=== PATIENT | female | born 1975 | race African-American/Black ===

== ENCOUNTER 2017-09-08 14:37 | Inpatient (IN) | payer OTHER, SELFPAY ==
[2017-09-08 16:00] LABS: #Eosinphils 0.1 thou/uL (0.0-0.7); #Lymphocytes 1.4 thou/uL (1.20-3.40); #Monocytes 0.2 thou/uL (0.11-0.59); #Neutrophils 3.3 thou/uL (1.40-6.50); %Basophils 0.8 % (0.0-1.0); %Eosinophils 1.3 % (0.0-10.0); %Lymphocytes 26.9 % (21.0-51.0); %Monocytes 4.6 % (0.0-10.0); %Neutrophils 66.4 % (42.0-75.0); Hemoglobin 10.7 g/dL (12.0-16.0); Mean Corpuscular HGB CONC 33.9 g/dL (32.0-36.0); Mean Corpuscular Hemoglobin 26.5 pg (27.0-31.0); Mean Corpuscular Volume 78.2 fl (81.0-99.0); Mean Platelet Volume 8.5 fL (7.4-10.4); Platelet Count 202 thou/uL (130-400); RBC Distribution Width 13.8 % (11.5-14.5); Red Blood Cell (RBC) Count 4.03 mill/uL (4.20-5.40)
[2017-09-08] MEDS ORDERED: Furosemide 20 MG/2 ML VIAL ONE (16:07)
--- NOTE | 2017-09-08 16:17 | RAD ---
CHEST TWO VIEWS: 09/08/17 HISTORY: Dyspnea. Heart disease. COMPARISON: 06/02/16. FINDINGS: The cardiac silhouette is magnified and more enlarged. Pulmonary vasculature is unremarkable. Mediast inum is midline with a dual lead left subclavian cardiac electronic device. No confluent air space co nsolidation, pneumothorax or pleural fluid. IMPRESSION: Worsening cardiomegaly. No evidence of edema. POS: [facility]
[2017-09-08 16:19] LABS: ALT (SGPT) 17 U/L (8-55); AST (SGOT) 12 U/L (5-34); Albumin 4.3 g/dL (3.5-5.0); Alkaline Phosphatase 57 U/L (40-150); Anion Gap 14 mmol/L (10-20); BUN (Urea Nitrogen) 17 mg/dL (7.0-18.7); Bilirubin, Total 1.2 mg/dL (0.2-1.2); Calc. Creatinine Clearance 0 mL/min (70-130); Calcium 9.5 mg/dL (7.8-10.44); Carbon Dioxide 29 mmol/L (22-29); Chloride 101 mmol/L (98-107); Estimated GFR-MDRD 75; Globulin 3.2 g/dL (2.4-3.5); Glucose 260 mg/dL (70-105); Potassium 3.3 mmol/L (3.5-5.1); Protein, Total 7.5 g/dL (6.0-8.3); Sodium 141 mmol/L (136-145)
[2017-09-08 16:24] LABS: CKMB 0.5 ng/mL (0-6.6)
[2017-09-08 19:13] VITALS: BMI 22.2
[2017-09-08] MEDS ORDERED: Acetaminophen 650 MG Suppository PR PRN (19:39)
[2017-09-08] MEDS ORDERED: Dextrose 5% in Water 1,000 ML IV PRN (19:39)
[2017-09-08] MEDS ORDERED: Bisacodyl 5 MG TAB PO PRN (19:39)
[2017-09-08] MEDS ORDERED: Acetaminophen 325 MG TAB PO PRN (19:39)
[2017-09-08] MEDS ORDERED: Dextrose 50% Abboject 50 ML SYRINGE SLOW IVP PRN (19:39)
[2017-09-08] MEDS ORDERED: Ondansetron HCl/PF 4 MG/2 ML Vial IVP PRN (19:39)
--- NOTE | 2017-09-08 20:26 | HP ---
PRIMARY CARE PHYSICIAN: Dr. Kayden Lopez. CHIEF COMPLAINT: Cough and shortness of breath. HISTORY OF PRESENT ILLNESS: This is a 42-year-old -[place] female with a known history of severe cardiomyopathy with ejection fraction of 15%-20% with a defibrillator placed. She follows with Dr. Payan as well as with a clinic in [place]. She reports that for the last week, she has had shortness of breath and cough productive of foamy sputum. She would see her primary care doctor one week ago, was given amoxicillin and Flonase, which did not help the symptoms. She was called by the facsimile machine operator's office on Monday and told that her monitor was reporting that she was fluid overloaded. They told her to increase her Lasix to 2 tablets of 40 mg in the morning and 3 tablets in the afternoon. She stated she has been doing this without any noticeable increase in urine output. She also states she has been restricting her fluids. She has persistent cough and shortness of breath especially with ambulation. She went to the Cardiology's office today. She said for a Coumadin level, although I do not see that she has ever been on Coumadin and they told her at that time, she did go to the emergency room to get her fluid status checked. In the ER, she was found to have a massively elevated brain natriuretic peptide as well as her dyspnea and cough. She did not have any hypoxia in the emergency room. She was low normal blood pressure and mildly tachycardic. PAST MEDICAL HISTORY: 1. Dilated cardiomyopathy diagnosed in 2006, the most recent ejection fraction was 15%-20% in 2016 on her echocardiogram at that time. 2. Diabetes mellitus, type 2, insulin-dependent. 3. Hypertension. 4. Arrhythmia, status post ablation. 5. Dyslipidemia. 6. Coronary artery disease. PAST SURGICAL HISTORY: 1. Cholecystectomy. 2. Appendectomy. 3. Bilateral oophorectomy. 4. AICD placement. 5. Cardiac ablation. PSYCHIATRIC HISTORY: Anxiety and depression. SOCIAL HISTORY: No tobacco use. She did use to drink, but stopped with her severe heart problems many years ago. No illicit drug use. FAMILY HISTORY: Significant for diabetes, stroke, and CHF. ALLERGIES: AZITHROMYCIN and DARVOCET. CURRENT MEDICATIONS: 1. Amiodarone 100 mg 1/2 tablet twice a day. 2. Potassium chloride 20 mEq p.o. daily. 3. Furosemide 40 mg previously 1 tab in the morning, half a tablet in the afternoon, now 2 tablets in the morning, and 3 in the afternoon. 4. Spironolactone 25 mg twice a day. 5. Entresto 97/103 mg twice a day. 6. Carvedilol 25 mg twice a day. 7. Magnesium oxide 400 mg as directed once a day. 8. Glipizide 10 mg twice a day. 9. Metformin 1000 mg twice a day, uncertain with the current dose. 10. Lipitor 20 mg daily. 11. Aspirin 81 mg daily. 12. Ferrous sulfate 325 mg daily. REVIEW OF SYSTEMS: Constitutional: No fever. She has had some chills. Eyes: No double vision or blurred vision. ENT: She has had congestion as per HPI. No sore throat. Pulmonary: See HPI. Cardiovascular: No chest pain, no palpitations, no racing heart. Her AICD has not fired. Gastrointestinal: No abdominal pain. She has had some nausea just here in the emergency room, but otherwise she has no vomiting, no diarrhea or constipation. Genitourinary: No dysuria or hematuria. Musculoskeletal: She has had a little bit of low backache, otherwise, no other musculoskeletal complaints. Skin: No rashes or lesions. She has noted neurologic, no new numbness, tingling, or focal weakness. She does have some chronic stain pains in her bilateral feet, likely from diabetic neuropathy. PHYSICAL EXAMINATION: VITAL SIGNS: Blood pressure 102/75, pulse 102, respirations 20, O2 sat 96% on room air, temperature 98.6. GENERAL: This is a well-developed, well-nourished, -[place]ov[place] female in no apparent distress. HEENT: Pupils equal, round, and react to light. Oropharynx clear without lesions, erythema, or exudate. NECK: Supple. No lymphadenopathy, no thyroid nodules or enlargement, no JVD. HEART: Regular rate and rhythm. No murmurs, rubs, or gallops. LUNGS: She has some bibasilar crackles, otherwise good air movement throughout. No increased work of breathing, no wheezing. ABDOMEN: Soft, nontender to palpation, normoactive bowel sounds, no hepatosplenomegaly or other masses. EXTREMITIES: No clubbing, cyanosis, or edema. SKIN: No rashes or other lesions noted. NEUROLOGIC: She has intact deep tendon reflexes in all extremities and she has no facial droop. PSYCHIATRIC: Alert and oriented x3, normal mood and affect. LABORATORY DATA: CBC with hemoglobin of 10.7, hematocrit 31.5. The rest is normal. Complete metabolic panel was notable only for potassium of 3.3 and glucose of 260. Her brain natriuretic peptide is elevated at 1186. She has never been above 400 in our records here. Cardiac marker set negative x1. EKG : I did review the EKG done in the emergency room shows normal sinus rhythm, mild sinus tachycardia, normal axis, no ST segment changes, no significant arrhythmias. Chest x-ray: I did review the chest x-ray done in the emergency room along with the radiologist's report that show an enlarged cardiac silhouette along with the AICD in place. No evidence of pulmonary edema or infiltrate visible. ASSESSMENT: 1. Acute exacerbation of severe congestive heart failure. Patient does not seem to be responding to oral Lasix outpatient, we will try IV Lasix 60 mg twice a day. If this does not work, may need to try some other medications. We will continue her spironolactone while increased her potassium temporarily, as she seems to be dropping somewhat of the increased dose of Lasix. We will increase to 40 mEq twice a day and we will monitor closely. I have to discuss the patient with Dr. Cervantes's on-call. He will see her in the morning. We will go ahead and get an echocardiogram, as we do not have one within the last couple of years. We will also do strict I's and O's and put her on a fluid- restricted, salt-restricted diet. 2. Diabetes mellitus, type 2, insulin-dependent. We will find outpatient's Levemir dose and resume her home insulin. We will put her on a moderate sliding scale and we will monitor for her blood sugars before meals and at bedtime and we will put her on a diabetic diet. 3. Hypertension. Resume home medications. 4. Hyperlipidemia. Resume home statin. 5. Gastrointestinal prophylaxis. Put patient on Pepcid twice a day. 6. Deep venous thrombosis prophylaxis, we will put patient on sequential compression devices and we will check an INR to see if she really is on Coumadin and if so, we will try to find out her dose. Otherwise, we can start putting her on some Lovenox for deep venous thrombosis prevention. CODE STATUS: I did discuss with the patient. She is a FULL CODE. Should she be incapacitated, she states that her aunt would be her medical decision maker and her aunt's name is Winsome Beck. EMELI
[2017-09-08] MEDS: Amiodarone 200 MG TAB PO SCH (21:04)
[2017-09-08] MEDS: Atorvastatin Calcium 20 MG TAB PO SCH (21:08)
[2017-09-08] MEDS: Docusate 100 MG CAP PO SCH (21:08)
[2017-09-08] MEDS: Famotidine 20 MG TAB PO SCH (21:08)
[2017-09-08] MEDS: HumaLOG 300 UNITS/3 ML VIAL SC PRN (21:29)
[2017-09-09 04:55] LABS: INR-International Normal Ratio 1.2; Prothrombin Time 15.3 SEC (12.0-14.7)
[2017-09-09 05:18] LABS: Anion Gap 14 mmol/L (10-20); BUN (Urea Nitrogen) 15 mg/dL (7.0-18.7); Calc. Creatinine Clearance 89 mL/min (70-130); Carbon Dioxide 25 mmol/L (22-29); Chloride 103 mmol/L (98-107); Estimated GFR-MDRD Greater than 90; Glucose 126 mg/dL (70-105); Sodium 139 mmol/L (136-145)
[2017-09-09 05:21] LABS: Potassium 2.7 mmol/L (3.5-5.1)
[2017-09-09] MEDS ORDERED: Furosemide 100 MG/10 ML VIAL SLOW IVP SCH (06:00)
[2017-09-09 06:05] LABS: #Eosinphils 0.1 thou/uL (0.0-0.7); #Lymphocytes 1.7 thou/uL (1.20-3.40); #Monocytes 0.3 thou/uL (0.11-0.59); #Neutrophils 2.4 thou/uL (1.40-6.50); %Basophils 0.5 % (0.0-1.0); %Eosinophils 1.9 % (0.0-10.0); %Lymphocytes 37.4 % (21.0-51.0); %Monocytes 5.6 % (0.0-10.0); %Neutrophils 54.6 % (42.0-75.0); Hemoglobin 10.2 g/dL (12.0-16.0); Mean Corpuscular HGB CONC 34.8 g/dL (32.0-36.0); Mean Corpuscular Hemoglobin 26.8 pg (27.0-31.0); Mean Platelet Volume 8.6 fL (7.4-10.4); Platelet Count 201 thou/uL (130-400); Red Blood Cell (RBC) Count 3.79 mill/uL (4.20-5.40); White Blood Cell (WBC) Count 4.5 thou/uL (4.8-10.8)
[2017-09-09] MEDS ORDERED: Potassium Chloride 20 MEQ TAB PO SCH ×2 (08:00→13:30)
[2017-09-09] MEDS ORDERED: Carvedilol 25 MG TAB PO SCH (08:00)
[2017-09-09] MEDS ORDERED: Spironolactone 25 MG TAB PO SCH (08:00)
[2017-09-09] MEDS: Enoxaparin Sodium 40 MG/0.4 ML SYRINGE SC SCH (08:49)
[2017-09-09] MEDS: glipiZIDE 10 MG TAB PO SCH ×2 (08:50→15:54)
[2017-09-09] MEDS: Amiodarone 200 MG TAB PO SCH ×2 (08:50→21:09)
[2017-09-09] MEDS: metFORMIN 500 MG TAB PO SCH ×2 (08:50→18:10)
[2017-09-09] MEDS: Ferrous Sulfate 325 MG TAB PO SCH (08:51)
[2017-09-09] MEDS: Docusate 100 MG CAP PO SCH ×2 (08:51→21:09)
[2017-09-09] MEDS: Aspirin 81 mg Enteric Coated Tablet PO SCH (08:51)
[2017-09-09] MEDS: Famotidine 20 MG TAB PO SCH (08:51)
[2017-09-09] MEDS: Sodium Chloride 0.9% 10 ML ONE ×2 (08:52→11:58)
--- NOTE | 2017-09-09 10:08 | PDOC.PN ---
- Subjective Encounter Start Date: 09/09/17 Encounter Start Time: 11:50 Subjective: Patient dizzy this AM after Coreg and Spironolactone. BP 80s. No other -: complaints. Good UOP per pt last night, not much this AM. - Objective Resuscitation Status: Resuscitation Status FULL:Full Resuscitation MAR Reviewed: Yes Vital Signs & Weight: Vital Signs (12 hours) Temp Pulse Resp BP Pulse Ox 09/09/17 07:00 97.3 F L 108 H 16 103/66 98 Weight Weight 142 lb 6.4 oz Result Diagrams: 09/09/17 04:21 09/09/17 04:21 Additional Labs: Accuchecks 09/09/17 09/08/17 05:46 21:17 POC Glucose 151 H 276 H Phys Exam - Physical Examination Constitutional: NAD HEENT: moist MMs Respiratory: no wheezing, no rhonchi mild bibasilar rales Cardiovascular: RRR, no significant murmur Gastrointestinal: soft, positive bowel sounds Musculoskeletal: no edema Neurological: non-focal Psychiatric: normal affect, A&O x 3 Dx/Plan (1) Acute on chronic systolic (congestive) heart failure Code(s): I50.23 - ACUTE ON CHRONIC SYSTOLIC (CONGESTIVE) HEART FAILURE Status : Acute Comment: BP low, will decrease carvedilol dose, hold meds for now, if still low in 1 hour will give 250cc NS bolus. (2) S/P implantation of automatic cardioverter/defibrillator (AICD) Code(s): Z95.810 - PRESENCE OF AUTOMATIC (IMPLANTABLE) CARDIAC DEFIBRILLATOR Status: Chronic (3) Hypokalemia Code(s): E87.6 - HYPOKALEMIA Status: Acute Comment: worsened with IV Lasix, will give IV replacement (4) Diabetes mellitus, type II, insulin dependent Code(s): E11.9 - TYPE 2 DIABETES MELLITUS WITHOUT COMPLICATIONS; Z79.4 - [facility] (CURRENT) USE OF INSULIN Status: Chronic Comment: Resume home insulins (5) Hypertension Code(s): I10 - ESSENTIAL (PRIMARY) HYPERTENSION Status: Chronic Qualifiers: Hypertension type: essential hypertension Qualified Code(s): I10 - Essential (primary) hypertension (6) Hyperlipidemia Code(s): E78.5 - HYPERLIPIDEMIA, UNSPECIFIED Status: Chronic - Plan cont current plan of care, out of bed/ambulate, DVT proph w/lovenox, DVT proph w /SCDs Appreciate Dr. Cervantes's assistance. -: Plan on ECHO and [employer] interogator. * . - Discharge Day Encounter end time: 12:10
[2017-09-09] MEDS ORDERED: Potassium Chloride 40 MEQ in Sodium Chloride 0.9% 250 ML 250 ML IVPB SCH (11:00)
[2017-09-09] MEDS: HumaLOG 300 UNITS/3 ML VIAL SC PRN ×3 (12:52→21:12)
[2017-09-09] MEDS ORDERED: Spironolactone 25 MG TAB PO PRN (13:25)
[2017-09-09] MEDS ORDERED: Carvedilol 6.25 MG TAB PO PRN (13:25)
[2017-09-09] MEDS ORDERED: Sodium Chloride 0.9% 250 ML 250 ML IVPB PRN (13:27)
[2017-09-09] MEDS ORDERED: Furosemide 100 MG/10 ML VIAL SLOW IVP PRN (13:30)
[2017-09-09 14:42] LABS: Anion Gap 15 mmol/L (10-20); BUN (Urea Nitrogen) 18 mg/dL (7.0-18.7); Calc. Creatinine Clearance 66 mL/min (70-130); Calcium 9.1 mg/dL (7.8-10.44); Carbon Dioxide 25 mmol/L (22-29); Chloride 104 mmol/L (98-107); Estimated GFR-MDRD 65; Glucose 224 mg/dL (70-105); Potassium 3.8 mmol/L (3.5-5.1); Sodium 140 mmol/L (136-145)
--- NOTE | 2017-09-09 14:49 | CON ---
DATE OF CONSULTATION: 09/09/2017 HISTORY: Mr. Laurence Beck is a 42-year-old black female who has a dilated cardiomyopathy, initially diagnosed in 2006. Most recent echo was in 2016 with ejection fraction of 15%-20%. She had been followed by Dr. Sierra in the past; however, has been admitted here over the last several years and followed by Dr. Payan in the outpatient setting. In 10/2015, she was wearing a LifeVest , did have a shock from her device for ventricular tachycardia and torsades de pointes. She then underwent placement of a dual chamber ICD. Recently, she has been having problems with increased shortness of breath as well as difficulty in diuresing p.o. medications. On 08/03/2017, she was given 80 mg of Lasix intravenously as well as metolazone 5 mg in the [facility]. Her ICD has shown elevated volume level since mid-June. She was seen by Dr. Payan in the office on 08/11/2017. She continued to have problems with poor diuresis and her furosemide was increased to 20 mg 2 tablets b.i.d. and Aldactone 25 mg b.i.d. She has continued to have problems with cough, shortness of breath, and was not diuresing much, came to the emergency room. PAST MEDICAL HISTORY: Nonischemic cardiomyopathy, diabetes mellitus, hypertension, ablation of the arrhythmia approximately 10 years ago, hypercholesterolemia, coronary artery disease. OPERATIONS: ICD placement, cholecystectomy, appendectomy, bilateral oophorectomy, mapping of ventricular tachycardia here in 2006. MEDICATIONS: Aspirin 81 daily, alprazolam 0.5 b.i.d. and bedtime, amiodarone 50 mg daily, atorvastatin 20 at bedtime, carvedilol 25 b.i.d., ferrous sulfate 325 daily, furosemide, spironolactone 25 b.i.d., glipizide 10 mg b.i.d., insulin , magnesium oxide 400 mg daily, metformin 1000 b.i.d., Protonix 40 daily p.r.n. , KCl 20 mEq daily, and Entresto 97/103 b.i.d. ALLERGIES: AZITHROMYCIN. SOCIAL HISTORY: She does not smoke or drink. FAMILY HISTORY: Negative for coronary artery disease. REVIEW OF SYSTEMS: Twelve point review of systems unremarkable except as noted above. PHYSICAL EXAMINATION: VITAL SIGNS: Blood pressure 103/66, pulse of 108, sinus tachycardia on the monitor. HEENT: PERRL. NECK: Supple. CHEST: Clear. CARDIAC: S1, S2 were normal, without any S3, S4 or murmurs. ABDOMEN: Normal bowel sounds, without tenderness, organomegaly. EXTREMITIES: Revealed no clubbing, cyanosis or edema. NEUROLOGIC: Grossly intact. SKIN: Warm and dry. LABORATORY DATA: EKG revealed sinus tachycardia, nonspecific T-wave changes. Hemoglobin 10.2, hematocrit 29.2, white count 4500, platelets 201,000. INR 1.2 , sodium 139, potassium 2.7, chloride 103, carbon dioxide 25, BUN 15, creatinine 0.82. BNP 1186.4, troponin I is normal. Chest x-ray revealed worsening cardiomegaly and dual chamber ICD in place. There is no evidence of edema. IMPRESSION: 1. Severe nonischemic cardiomyopathy with last ejection fraction of 15%-20%. Her OptiVol has been elevated since June and there has been difficulty in diuresing on a consistent basis with p.o. medications. 2. Hypertension. 3. Diabetes. 4. Probable ventricular tachycardia ablation 10 years ago. PLAN: The patient has been started on furosemide 60 mg IV b.i.d. She states that she has had good diuresis with this, although there are no I's and O's on the chart. These have been discussed with the nurse on the unit. She will continue to be diuresed and her potassium will need to be adequately replaced. Also, I will have her ICD interrogated again. EMELI
[2017-09-09] MEDS: Ondansetron ODT 4 MG TAB PO PRN (15:57)
[2017-09-09] MEDS ORDERED: Carvedilol 6.25 MG TAB PO SCH (17:00)
[2017-09-09] MEDS: Potassium Chloride 20 MEQ TAB PO SCH ×2 (18:08→21:10)
[2017-09-09] MEDS ORDERED: ALPRAZolam 0.5 MG TAB PO SCH (21:00)
[2017-09-09] MEDS: ALPRAZolam 0.5 MG TAB PO SCH (21:09)
[2017-09-09] MEDS: Atorvastatin Calcium 20 MG TAB PO SCH (21:09)
[2017-09-09] MEDS: Insulin Detemir 100 UNITS/ML 55 UNITS in Pre-Filled Syringe 1 EACH SC SCH (21:10)
[2017-09-09] MEDS: Sacubitril 49 MG/Valsartan 51 MG TABLET PO SCH (21:11)
[2017-09-10] MEDS ORDERED: Sodium Chloride 0.9% 250 ML IVPB PRN (00:32)
[2017-09-10 05:07] LABS: INR-International Normal Ratio 1.2; Prothrombin Time 15.8 SEC (12.0-14.7)
[2017-09-10 05:36] LABS: Eosinophils 2 % (0-10); Hemoglobin 10.2 g/dL (12.0-16.0); Lymphocytes 42 % (21-51); MDiff Complete? YES; Mean Corpuscular Hemoglobin 26.7 pg (27.0-31.0); Mean Corpuscular Volume 78.5 fl (81.0-99.0); Mean Platelet Volume 8.6 fL (7.4-10.4); Monocytes 4 % (0-10); Myelocyte 1 % (0-0); Neutrophil 51 % (42-75); Platelet Count 179 thou/uL (130-400); RBC Distribution Width 14.2 % (11.5-14.5); Red Blood Cell (RBC) Count 3.81 mill/uL (4.20-5.40)
[2017-09-10 06:06] LABS: Anion Gap 17 mmol/L (10-20); BUN (Urea Nitrogen) 26 mg/dL (7.0-18.7); Calc. Creatinine Clearance 33 mL/min (70-130); Calcium 9.2 mg/dL (7.8-10.44); Carbon Dioxide 21 mmol/L (22-29); Chloride 105 mmol/L (98-107); Estimated GFR-MDRD 29; Glucose 193 mg/dL (70-105); Potassium 4.1 mmol/L (3.5-5.1); Sodium 139 mmol/L (136-145)
[2017-09-10] MEDS: Ferrous Sulfate 325 MG TAB PO SCH (08:16)
[2017-09-10] MEDS: glipiZIDE 10 MG TAB PO SCH ×2 (08:16→16:50)
[2017-09-10] MEDS: metFORMIN 500 MG TAB PO SCH ×2 (08:16→16:50)
[2017-09-10] MEDS: Magnesium Oxide 400 MG TAB PO SCH (08:16)
[2017-09-10] MEDS: Aspirin 81 mg Enteric Coated Tablet PO SCH (08:17)
[2017-09-10] MEDS: Enoxaparin Sodium 40 MG/0.4 ML SYRINGE SC SCH (08:18)
[2017-09-10] MEDS: Docusate 100 MG CAP PO SCH ×2 (08:22→21:48)
[2017-09-10] MEDS: Sacubitril 49 MG/Valsartan 51 MG TABLET PO SCH (08:23)
[2017-09-10] MEDS: Potassium Chloride 20 MEQ TAB PO SCH (08:43)
[2017-09-10] MEDS: Amiodarone 200 MG TAB PO SCH ×2 (08:44→21:47)
[2017-09-10] MEDS: Insulin Detemir 100 UNITS/ML 55 UNITS in Pre-Filled Syringe 1 EACH SC SCH ×2 (09:39→21:48)
--- NOTE | 2017-09-10 11:16 | PDOC.PN ---
- Subjective Encounter Start Date: 09/10/17 Encounter Start Time: 08:20 Pt seen for followup re: acute on chronic systolic CHF. Reports SOBOE. Reports light-headedness. - Objective Resuscitation Status: Resuscitation Status FULL:Full Resuscitation MAR Reviewed: Yes Vital Signs & Weight: Vital Signs (12 hours) Temp Pulse Resp BP BP Pulse Ox 09/10/17 11:05 97.8 F 98 20 104/52 L 96 09/10/17 08:10 97.5 F L 93 14 87/52 L 97 09/10/17 04:42 97.3 F L 93 18 85/54 L 95 09/10/17 04:28 96 09/10/17 01:11 85/54 L 09/10/17 00:00 97.9 F 98 20 87/50 L 96 Weight Weight 145 lb 1.6 oz I&O: 09/09/17 09/10/17 09/11/17 06:59 06:59 06:59 Intake Total 2046 Balance 2046 Result Diagrams: 09/10/17 04:10 09/10/17 04:10 Additional Labs: Accuchecks 09/09/17 09/09/17 09/09/17 20:18 17:01 11:25 POC Glucose 230 H 228 H 234 H EKG Reviewed by me: Yes (Tele: NSR) Phys Exam - Physical Examination Constitutional: NAD HEENT: PERRLA, moist MMs, sclera anicteric, oral pharynx no lesions Neck: no nodes, supple, full ROM Respiratory: no wheezing, no rales, no rhonchi, clear to auscultation bilateral Cardiovascular: RRR Gastrointestinal: soft, non-tender, no distention, positive bowel sounds Neurological: moves all 4 limbs Lymphatic: no nodes Psychiatric: normal affect, A&O x 3 Dx/Plan (1) Acute on chronic systolic (congestive) heart failure Code(s): I50.23 - ACUTE ON CHRONIC SYSTOLIC (CONGESTIVE) HEART FAILURE Status : Acute Comment: On IV furosemide (2) Hyperlipidemia Code(s): E78.5 - HYPERLIPIDEMIA, UNSPECIFIED Status: Chronic (3) Hypertension Code(s): I10 - ESSENTIAL (PRIMARY) HYPERTENSION Status: Chronic Qualifiers: Hypertension type: essential hypertension Qualified Code(s): I10 - Essential (primary) hypertension Comment: Monitor vital signs, titrate antihypertensives on hold. Today AM BP was low, so antihypertensives held. (4) S/P implantation of automatic cardioverter/defibrillator (AICD) Code(s): Z95.810 - PRESENCE OF AUTOMATIC (IMPLANTABLE) CARDIAC DEFIBRILLATOR Status: Chronic (5) Diabetes mellitus, type II, insulin dependent Code(s): E11.9 - TYPE 2 DIABETES MELLITUS WITHOUT COMPLICATIONS; Z79.4 - [employer] (CURRENT) USE OF INSULIN Status: Chronic Comment: Continue accuchecks, insulin (6) Non-ischemic cardiomyopathy Code(s): I42.9 - CARDIOMYOPATHY, UNSPECIFIED Status: Chronic (7) Hypokalemia Code(s): E87.6 - HYPOKALEMIA Status: Resolved Comment: worsened with IV Lasix, will give IV replacement - Plan out of bed/ambulate * . Review of Systems - Review of Systems Constitutional: negative: fever, chills, sweats, weakness, malaise Respiratory: SOB with Excertion. negative: Cough, Dry, Shortness of Breath, Hemoptysis, Pleuritic Pain, Sputum, Wheezing Cardiovascular: negative: chest pain, palpitations, orthopnea, paroxysmal nocturnal dyspnea, edema, light headedness Gastrointestinal: negative: Nausea, Vomiting, Abdominal Pain, Diarrhea, Constipation, Melena, Hematochezia Genitourinary: negative: Dysuria, Frequency, Incontinence, Hematuria, Retention Neurological: Other (Light-headed) - Medications/Allergies Allergies/Adverse Reactions: Allergies Allergy/AdvReac Type Severity Reaction Status Date / Time azithromycin Allergy Mild Rash Verified 09/08/17 19:42 erythromycin base Allergy Verified 09/08/17 19:42 [From E-Mycin] Latex, Natural Rubber Allergy Verified 09/08/17 19:42 propoxyphene napsylate Allergy Verified 09/08/17 19:42 [From Darvocet-N] Medications: Current Medications Acetaminophen (Tylenol) 650 mg PO Q4H PRN PRN Reason: Headache/Fever or Pain Acetaminophen (Tylenol) [address] Q4H PRN PRN Reason: Headache/Fever or Pain Alprazolam (Xanax) 0.5 mg PO HS [facility] Last Admin: 09/09/17 21:09 Dose: 0.5 mg Amiodarone HCl (Cordarone) 50 mg PO BID [facility] Last Admin: 09/10/17 08:44 Dose: 50 mg Aspirin (Ecotrin) 81 mg PO DAILY [facility] Last Admin: 09/10/17 08:17 Dose: 81 mg Atorvastatin Calcium (Lipitor) 20 mg PO HS [facility] Last Admin: 09/09/17 21:09 Dose: 20 mg Bisacodyl (Dulcolax) 10 mg PO DAILYPRN PRN PRN Reason: Constipation Carvedilol (Coreg) 12.5 mg PO PRN PRN PRN Reason: SBP =/> 110 Dextrose/Water (Dextrose 50%) 25 gm SLOW IVP PRN PRN PRN Reason: Hypoglycemia Docusate Sodium (Colace) 100 mg PO BID [facility] Last Admin: 09/10/17 08:22 Dose: Not Given Enoxaparin Sodium (Lovenox) 40 mg SC 0900 [facility] Last Admin: 09/10/17 08:18 Dose: 40 mg Ferrous Sulfate (Feosol) 325 mg PO QAM-[facility] Last Admin: 09/10/17 08:16 Dose: 325 mg Furosemide (Lasix) 60 mg SLOW IVP PRN PRN PRN Reason: SBP =/> 110 Glipizide (Glucotrol) 10 mg PO BID-AC [facility] Last Admin: 09/10/17 08:16 Dose: 10 mg Glucagon (Glucagon) 1 mg IM PRN PRN PRN Reason: Hypoglycemia Dextrose/Water (D5w) 1,000 mls @ 0 mls/hr IV .Q0M PRN; As Directed PRN Reason: Hypoglycemia Insulin Detemir 55 units/ (Miscellaneous Medication) 0.55 mls @ 0 mls/hr SC BID [facility] Last Admin: 09/10/17 09:39 Dose: 0.55 mls Sodium Chloride (Normal Saline 0.9%) 250 mls @ 0 mls/hr IVPB .BOLUS PRN; As Directed PRN Reason: SBP<90 Last Admin: 09/10/17 00:35 Dose: 250 mls Insulin Human Lispro (Humalog) 0 units SC .MODERATE SLIDING SC PRN PRN Reason: Moderate Correctional Scale Last Admin: 09/09/17 18:10 Dose: 4 unit Insulin Human Lispro (Humalog) 0 units SC .BEDTIME SLIDING SC PRN PRN Reason: Bedtime Correctional Scale Last Admin: 09/09/17 21:12 Dose: 3 unit Magnesium Oxide (Magnesium Oxide) 400 mg PO DAILY [facility] Last Admin: 09/10/17 08:16 Dose: 400 mg Metformin HCl (Glucophage) 1,000 mg PO BID-[facility] Last Admin: 09/10/17 08:16 Dose: 1,000 mg Ondansetron HCl (Zofran Odt) 4 mg PO Q6H PRN PRN Reason: Nausea/Vomiting Last Admin: 09/09/17 15:57 Dose: 4 mg Ondansetron HCl (Zofran) 4 mg IVP Q6H PRN PRN Reason: Nausea/Vomiting Pantoprazole Sodium (Protonix) 40 mg PO DAILY PRN PRN Reason: Indigestion Sacubitril/Valsartan (Entresto 49 Mg-51 Mg Tablet) 2 tab PO BID [facility] Last Admin: 09/10/17 08:23 Dose: Not Given Spironolactone (Aldactone) 25 mg PO PRN PRN PRN Reason: SBP =/> 110
[2017-09-10] MEDS: HumaLOG 300 UNITS/3 ML VIAL SC PRN (11:46)
[2017-09-10] MEDS ORDERED: Sodium Chloride 0.9% 500 ML IV SCH (17:45)
[2017-09-10] MEDS: DOPamine 400 MG/D5W 250 ML 250 ML IVPB SCH (18:25)
[2017-09-10] MEDS: Atorvastatin Calcium 20 MG TAB PO SCH (21:47)
[2017-09-10] MEDS: ALPRAZolam 0.5 MG TAB PO SCH (21:47)
[2017-09-11 04:36] LABS: INR-International Normal Ratio 1.1; Prothrombin Time 14.8 SEC (12.0-14.7)
[2017-09-11 04:48] LABS: Anion Gap 16 mmol/L (10-20); BUN (Urea Nitrogen) 32 mg/dL (7.0-18.7); Calc. Creatinine Clearance 50 mL/min (70-130); Calcium 9.6 mg/dL (7.8-10.44); Carbon Dioxide 22 mmol/L (22-29); Chloride 105 mmol/L (98-107); Estimated GFR-MDRD 45; Glucose 80 mg/dL (70-105); Potassium 4.3 mmol/L (3.5-5.1); Sodium 139 mmol/L (136-145)
[2017-09-11] MEDS: Amiodarone 200 MG TAB PO SCH ×2 (09:42→20:41)
[2017-09-11] MEDS: metFORMIN 500 MG TAB PO SCH ×2 (09:43→17:54)
[2017-09-11] MEDS: Ferrous Sulfate 325 MG TAB PO SCH (09:44)
[2017-09-11] MEDS: Aspirin 81 mg Enteric Coated Tablet PO SCH (09:44)
[2017-09-11] MEDS: Magnesium Oxide 400 MG TAB PO SCH (09:44)
[2017-09-11] MEDS: glipiZIDE 10 MG TAB PO SCH ×2 (09:44→16:43)
[2017-09-11] MEDS: Enoxaparin Sodium 40 MG/0.4 ML SYRINGE SC SCH (09:45)
[2017-09-11] MEDS: Docusate 100 MG CAP PO SCH ×2 (09:48→20:41)
[2017-09-11] MEDS ORDERED: Insulin Detemir 100 UNITS/ML 45 UNITS in Pre-Filled Syringe 1 EACH SC SCH (10:15)
[2017-09-11] MEDS: Insulin Detemir 100 UNITS/ML 55 UNITS in Pre-Filled Syringe 1 EACH SC SCH (10:46)
--- NOTE | 2017-09-11 13:21 | PDOC.PN ---
- Subjective Encounter Start Date: 09/11/17 Encounter Start Time: 11:40 Pt seen for followup re: acute on chronic systolic CHF. Feels better in terms of light-headedness. No fevers or chills. - Objective Resuscitation Status: Resuscitation Status FULL:Full Resuscitation MAR Reviewed: Yes Vital Signs & Weight: Vital Signs (12 hours) Temp Pulse Resp BP Pulse Ox 09/11/17 12:29 98.2 F 110 H 18 86/56 L 96 09/11/17 07:50 97.6 F 91 19 89/50 L 95 09/11/17 03:43 97.5 F L 111 H 16 105/60 99 Weight Weight 146 lb 12.8 oz I&O: 09/10/17 09/11/17 09/12/17 06:59 06:59 06:59 Intake Total 2046 2064 Output Total 415 Balance 2046 1649 Result Diagrams: 09/10/17 04:10 09/11/17 04:08 Additional Labs: Accuchecks 09/11/17 09/11/17 09/11/17 11:11 09:27 06:04 POC Glucose 82 85 72 09/10/17 09/10/17 21:03 15:37 POC Glucose 79 135 H EKG Reviewed by me: Yes (Tele: NSR) Phys Exam - Physical Examination Constitutional: NAD HEENT: PERRLA, moist MMs, sclera anicteric, oral pharynx no lesions Neck: supple Respiratory: no wheezing, no rhonchi Bibasal crackles Cardiovascular: RRR, no rub Gastrointestinal: soft, non-tender, no distention, positive bowel sounds Musculoskeletal: edema present Neurological: moves all 4 limbs Psychiatric: normal affect, A&O x 3 Dx/Plan (1) Acute on chronic systolic (congestive) heart failure Code(s): I50.23 - ACUTE ON CHRONIC SYSTOLIC (CONGESTIVE) HEART FAILURE Status : Acute Comment: Furosemide on hold due to hypotension (2) Hyperlipidemia Code(s): E78.5 - HYPERLIPIDEMIA, UNSPECIFIED Status: Chronic (3) Hypertension Code(s): I10 - ESSENTIAL (PRIMARY) HYPERTENSION Status: Chronic Qualifiers: Hypertension type: essential hypertension Qualified Code(s): I10 - Essential (primary) hypertension Comment: Pt has been started on dopamine drip for hypotension (4) S/P implantation of automatic cardioverter/defibrillator (AICD) Code(s): Z95.810 - PRESENCE OF AUTOMATIC (IMPLANTABLE) CARDIAC DEFIBRILLATOR Status: Chronic (5) Diabetes mellitus, type II, insulin dependent Code(s): E11.9 - TYPE 2 DIABETES MELLITUS WITHOUT COMPLICATIONS; Z79.4 - GROUP HOME (CURRENT) USE OF INSULIN Status: Chronic Comment: on accuchecks, insulin sliding scale (6) Non-ischemic cardiomyopathy Code(s): I42.9 - CARDIOMYOPATHY, UNSPECIFIED Status: Chronic (7) Hypokalemia Code(s): E87.6 - HYPOKALEMIA Status: Resolved - Plan * . Creatinine improved today Review of Systems - Review of Systems Constitutional: negative: fever, chills, sweats, weakness, malaise Respiratory: SOB with Excertion. negative: Cough, Dry, Shortness of Breath, Hemoptysis, Pleuritic Pain, Sputum, Wheezing Cardiovascular: negative: chest pain, palpitations, orthopnea, paroxysmal nocturnal dyspnea, edema, light headedness Gastrointestinal: negative: Nausea, Vomiting, Abdominal Pain, Diarrhea, Constipation, Melena, Hematochezia Genitourinary: negative: Dysuria, Frequency, Incontinence, Hematuria, Retention - Medications/Allergies Allergies/Adverse Reactions: Allergies Allergy/AdvReac Type Severity Reaction Status Date / Time azithromycin Allergy Mild Rash Verified 09/08/17 19:42 erythromycin base Allergy Verified 09/08/17 19:42 [From E-Mycin] Latex, Natural Rubber Allergy Verified 09/08/17 19:42 propoxyphene napsylate Allergy Verified 09/08/17 19:42 [From Darvocet-N] Medications: Current Medications Acetaminophen (Tylenol) 650 mg PO Q4H PRN PRN Reason: Headache/Fever or Pain Acetaminophen (Tylenol) 650 mg [place] Q4H PRN PRN Reason: Headache/Fever or Pain Alprazolam (Xanax) 0.5 mg PO [facility] Last Admin: 09/10/17 21:47 Dose: 0.5 mg Amiodarone HCl (Cordarone) 50 mg PO BID [facility] Last Admin: 09/11/17 09:42 Dose: 50 mg Aspirin (Ecotrin) 81 mg PO DAILY [facility] Last Admin: 09/11/17 09:44 Dose: 81 mg Atorvastatin Calcium (Lipitor) 20 mg PO HS [facility] Last Admin: 09/10/17 21:47 Dose: 20 mg Bisacodyl (Dulcolax) 10 mg PO DAILYPRN PRN PRN Reason: Constipation Dextrose/Water (Dextrose 50%) 25 gm SLOW IVP PRN PRN PRN Reason: Hypoglycemia Docusate Sodium (Colace) 100 mg PO BID [facility] Last Admin: 09/11/17 09:48 Dose: Not Given Enoxaparin Sodium (Lovenox) 40 mg SC 0900 [facility] Last Admin: 09/11/17 09:45 Dose: 40 mg Ferrous Sulfate (Feosol) 325 mg PO QAM-[facility] Last Admin: 09/11/17 09:44 Dose: 325 mg Glipizide (Glucotrol) 10 mg PO BID-[facility] Last Admin: 09/11/17 09:44 Dose: Not Given Glucagon (Glucagon) 1 mg IM PRN PRN PRN Reason: Hypoglycemia Dextrose/Water (D5w) 1,000 mls @ 0 mls/hr IV .Q0M PRN; As Directed PRN Reason: Hypoglycemia Sodium Chloride (Normal Saline 0.9%) 250 mls @ 0 mls/hr IVPB .BOLUS PRN; As Directed PRN Reason: SBP<90 Last Admin: 09/10/17 00:35 Dose: 250 mls Dopamine HCl/Dextrose (Dopamine/D5w) 250 mls @ 6.17 mls/hr IVPB INF MEDARDO; 2.5 MCG/KG/MIN PRN Reason: Protocol Last Admin: 09/10/17 18:25 Dose: 250 mls Insulin Detemir 45 units/ (Miscellaneous Medication) 0.45 mls @ 0 mls/hr SC BID [facility] Insulin Human Lispro (Humalog) 0 units SC .MODERATE SLIDING SC PRN PRN Reason: Moderate Correctional Scale Last Admin: 09/10/17 11:46 Dose: 4 unit Insulin Human Lispro (Humalog) 0 units SC .BEDTIME SLIDING SC PRN PRN Reason: Bedtime Correctional Scale Last Admin: 09/09/17 21:12 Dose: 3 unit Magnesium Oxide (Magnesium Oxide) 400 mg PO DAILY [facility] Last Admin: 09/11/17 09:44 Dose: 400 mg Metformin HCl (Glucophage) 1,000 mg PO BID-[facility] Last Admin: 09/11/17 09:43 Dose: 1,000 mg Ondansetron HCl (Zofran Odt) 4 mg PO Q6H PRN PRN Reason: Nausea/Vomiting Last Admin: 09/09/17 15:57 Dose: 4 mg Ondansetron HCl (Zofran) 4 mg IVP Q6H PRN PRN Reason: Nausea/Vomiting Pantoprazole Sodium (Protonix) 40 mg PO DAILY PRN PRN Reason: Indigestion Sodium Chloride (Flush - Normal Saline) 10 ml IVF Q12HR MEDARDO Sodium Chloride (Flush - Normal Saline) 10 ml IVF PRN PRN PRN Reason: Saline Flush Spironolactone (Aldactone) 25 mg PO PRN PRN PRN Reason: SBP =/> 110
[2017-09-11] MEDS: Ondansetron ODT 4 MG TAB PO PRN (13:32)
[2017-09-11] MEDS: Sodium Chloride 0.9% 1,000 ML IV SCH (19:00)
[2017-09-11] MEDS: ALPRAZolam 0.5 MG TAB PO SCH (20:41)
[2017-09-11] MEDS: Atorvastatin Calcium 20 MG TAB PO SCH (20:41)
[2017-09-11] MEDS: Insulin Detemir 100 UNITS/ML 45 UNITS in Pre-Filled Syringe 1 EACH SC SCH (20:42)
[2017-09-12 04:51] LABS: INR-International Normal Ratio 1.2; Prothrombin Time 15.1 SEC (12.0-14.7)
[2017-09-12 05:05] LABS: Anion Gap 15 mmol/L (10-20); BUN (Urea Nitrogen) 26 mg/dL (7.0-18.7); Calc. Creatinine Clearance 75 mL/min (70-130); Calcium 9.7 mg/dL (7.8-10.44); Carbon Dioxide 22 mmol/L (22-29); Chloride 106 mmol/L (98-107); Estimated GFR-MDRD 72; Glucose 77 mg/dL (70-105); Potassium 4.4 mmol/L (3.5-5.1); Sodium 139 mmol/L (136-145)
[2017-09-12] MEDS: DOPamine 400 MG/D5W 250 ML 250 ML IVPB SCH (08:15)
[2017-09-12] MEDS: metFORMIN 500 MG TAB PO SCH ×2 (08:16→16:54)
[2017-09-12] MEDS: Enoxaparin Sodium 40 MG/0.4 ML SYRINGE SC SCH (08:16)
[2017-09-12] MEDS: glipiZIDE 10 MG TAB PO SCH ×2 (08:17→16:54)
[2017-09-12] MEDS: Amiodarone 200 MG TAB PO SCH (08:17)
[2017-09-12] MEDS: Ferrous Sulfate 325 MG TAB PO SCH (08:17)
[2017-09-12] MEDS: Aspirin 81 mg Enteric Coated Tablet PO SCH (08:17)
[2017-09-12] MEDS: Docusate 100 MG CAP PO SCH ×2 (08:17→20:06)
[2017-09-12] MEDS: Magnesium Oxide 400 MG TAB PO SCH (08:17)
[2017-09-12] MEDS: Insulin Detemir 100 UNITS/ML 45 UNITS in Pre-Filled Syringe 1 EACH SC SCH ×2 (08:18→21:33)
--- NOTE | 2017-09-12 10:51 | PDOC.PN ---
- Subjective Encounter Start Date: 09/12/17 Encounter Start Time: 07:00 Pt seen for followup re: hypotension. Feels better, no dizziness, - Objective Resuscitation Status: Resuscitation Status FULL:Full Resuscitation MAR Reviewed: Yes Vital Signs & Weight: Vital Signs (12 hours) Temp Pulse Resp BP BP Pulse Ox 09/12/17 08:00 98.3 F 104 H 16 97 09/12/17 07:49 98.3 F 104 H 16 130/75 97 09/12/17 04:00 97.6 F 108 H 16 105/70 95 09/11/17 23:55 91/55 L Weight Weight 147 lb 8 oz I&O: 09/11/17 09/12/17 09/13/17 06:59 06:59 06:59 Intake Total 2065 2157.5 Output Total 415 1600 Balance 1650 557.5 Result Diagrams: 09/10/17 04:10 09/12/17 04:11 Additional Labs: Accuchecks 09/12/17 09/11/17 09/11/17 06:06 20:40 16:25 POC Glucose 84 115 H 83 09/11/17 09/11/17 14:13 11:11 POC Glucose 97 82 EKG Reviewed by me: Yes (Tele: NSR) Phys Exam - Physical Examination Constitutional: NAD HEENT: PERRLA, moist MMs, sclera anicteric, oral pharynx no lesions Respiratory: no wheezing, no rales, no rhonchi, clear to auscultation bilateral Cardiovascular: RRR, no rub Gastrointestinal: soft, non-tender, no distention, positive bowel sounds Musculoskeletal: edema present Neurological: moves all 4 limbs Psychiatric: normal affect, A&O x 3 Skin: no rash Dx/Plan (1) Hypotension Status: Acute Comment: On dopamine drip (2) Acute on chronic systolic (congestive) heart failure Code(s): I50.23 - ACUTE ON CHRONIC SYSTOLIC (CONGESTIVE) HEART FAILURE Status : Acute Comment: Furosemide on hold due to hypotension Beta otto and ACEI on hold as well due to hypotension (3) Hyperlipidemia Code(s): E78.5 - HYPERLIPIDEMIA, UNSPECIFIED Status: Chronic (4) Hypertension Code(s): I10 - ESSENTIAL (PRIMARY) HYPERTENSION Status: Chronic Qualifiers: Hypertension type: essential hypertension Qualified Code(s): I10 - Essential (primary) hypertension Comment: Antihypertensives on hold due to hypotension (5) S/P implantation of automatic cardioverter/defibrillator (AICD) Code(s): Z95.810 - PRESENCE OF AUTOMATIC (IMPLANTABLE) CARDIAC DEFIBRILLATOR Status: Chronic (6) Diabetes mellitus, type II, insulin dependent Code(s): E11.9 - TYPE 2 DIABETES MELLITUS WITHOUT COMPLICATIONS; Z79.4 - GROUP HOME (CURRENT) USE OF INSULIN Status: Chronic Comment: accuchecks, insulin sliding scale (7) Non-ischemic cardiomyopathy Code(s): I42.9 - CARDIOMYOPATHY, UNSPECIFIED Status: Chronic (8) Hypokalemia Code(s): E87.6 - HYPOKALEMIA Status: Resolved - Plan DVT proph w/lovenox * . Review of Systems - Review of Systems Constitutional: negative: fever, chills, sweats, weakness, malaise Respiratory: negative: Cough, Dry, Shortness of Breath, Hemoptysis, SOB with Excertion, Pleuritic Pain, Sputum, Wheezing Cardiovascular: negative: chest pain, palpitations, orthopnea, paroxysmal nocturnal dyspnea, edema, light headedness Gastrointestinal: negative: Nausea, Vomiting, Abdominal Pain, Diarrhea, Constipation, Melena, Hematochezia Skin: negative: Rash, Lesions, Albino, Bruising - Medications/Allergies Allergies/Adverse Reactions: Allergies Allergy/AdvReac Type Severity Reaction Status Date / Time azithromycin Allergy Mild Rash Verified 09/08/17 19:42 erythromycin base Allergy Verified 09/08/17 19:42 [From E-Mycin] Latex, Natural Rubber Allergy Verified 09/08/17 19:42 propoxyphene napsylate Allergy Verified 09/08/17 19:42 [From Darvocet-N] Medications: Current Medications Acetaminophen (Tylenol) 650 mg PO Q4H PRN PRN Reason: Headache/Fever or Pain Acetaminophen (Tylenol) 650 mg [place] Q4H PRN PRN Reason: Headache/Fever or Pain Alprazolam (Xanax) 0.5 mg PO HS [facility] Last Admin: 09/11/17 20:41 Dose: 0.5 mg Amiodarone HCl (Cordarone) 50 mg PO BID [facility] Last Admin: 09/12/17 08:17 Dose: 50 mg Aspirin (Ecotrin) 81 mg PO DAILY [facility] Last Admin: 09/12/17 08:17 Dose: 81 mg Atorvastatin Calcium (Lipitor) 20 mg PO HS [facility] Last Admin: 09/11/17 20:41 Dose: 20 mg Bisacodyl (Dulcolax) 10 mg PO DAILYPRN PRN PRN Reason: Constipation Dextrose/Water (Dextrose 50%) 25 gm SLOW IVP PRN PRN PRN Reason: Hypoglycemia Docusate Sodium (Colace) 100 mg PO BID [facility] Last Admin: 09/12/17 08:17 Dose: Not Given Enoxaparin Sodium (Lovenox) 40 mg SC 0900 [facility] Last Admin: 09/12/17 08:16 Dose: 40 mg Ferrous Sulfate (Feosol) 325 mg PO QAM-[facility] Last Admin: 09/12/17 08:17 Dose: 325 mg Glipizide (Glucotrol) 10 mg PO BID-[facility] Last Admin: 09/12/17 08:17 Dose: 10 mg Glucagon (Glucagon) 1 mg IM PRN PRN PRN Reason: Hypoglycemia Dextrose/Water (D5w) 1,000 mls @ 0 mls/hr IV .Q0M PRN; As Directed PRN Reason: Hypoglycemia Sodium Chloride (Normal Saline 0.9%) 250 mls @ 0 mls/hr IVPB .BOLUS PRN; As Directed PRN Reason: SBP<90 Last Admin: 09/10/17 00:35 Dose: 250 mls Dopamine HCl/Dextrose (Dopamine/D5w) 250 mls @ 6.17 mls/hr IVPB INF MEDARDO; 2.5 MCG/KG/MIN PRN Reason: Protocol Last Admin: 09/12/17 08:15 Dose: 250 mls Insulin Detemir 45 units/ (Miscellaneous Medication) 0.45 mls @ 0 mls/hr SC BID [facility] Last Admin: 09/12/17 08:18 Dose: Not Given Sodium Chloride (Normal Saline 0.9%) 1,000 mls @ 50 mls/hr IV .Q20H [facility] Last Admin: 09/11/17 19:00 Dose: 1,000 mls Insulin Human Lispro (Humalog) 0 units SC .MODERATE SLIDING SC PRN PRN Reason: Moderate Correctional Scale Last Admin: 09/10/17 11:46 Dose: 4 unit Insulin Human Lispro (Humalog) 0 units SC .BEDTIME SLIDING SC PRN PRN Reason: Bedtime Correctional Scale Last Admin: 09/09/17 21:12 Dose: 3 unit Magnesium Oxide (Magnesium Oxide) 400 mg PO DAILY [facility] Last Admin: 09/12/17 08:17 Dose: 400 mg Metformin HCl (Glucophage) 1,000 mg PO BID-[facility] Last Admin: 09/12/17 08:16 Dose: 1,000 mg Ondansetron HCl (Zofran Odt) 4 mg PO Q6H PRN PRN Reason: Nausea/Vomiting Last Admin: 09/11/17 13:32 Dose: 4 mg Ondansetron HCl (Zofran) 4 mg IVP Q6H PRN PRN Reason: Nausea/Vomiting Pantoprazole Sodium (Protonix) 40 mg PO DAILY PRN PRN Reason: Indigestion Sodium Chloride (Flush - Normal Saline) 10 ml IVF Q12HR [facility] Last Admin: 09/12/17 08:18 Dose: 10 ml Sodium Chloride (Flush - Normal Saline) 10 ml IVF PRN PRN PRN Reason: Saline Flush Spironolactone (Aldactone) 25 mg PO PRN PRN PRN Reason: SBP =/> 110
[2017-09-12] MEDS: Ondansetron ODT 4 MG TAB PO PRN (11:52)
[2017-09-12] MEDS: Sodium Chloride 0.9% 1,000 ML IV SCH (11:52)
[2017-09-12] MEDS ORDERED: Spironolactone 25 MG TAB PO SCH (19:00)
--- NOTE | 2017-09-12 19:45 | PRG ---
DATE OF SERVICE: 09/12/2017 SUBJECTIVE: Ms. Beck is not feeling much better, not diuresing well. OBJECTIVE: VITAL SIGNS: Blood pressure is 92/70, pulse is 100. NECK: Veins are distended. LUNGS: Clear. CARDIAC: Normal S1, normal S2. ABDOMEN: Soft, nontender. EXTREMITIES: No edema. Blood sugars have been low, 64 is the lowest. Reviewing the records, ejection fraction is severely depressed at 10%-15%. The OptiVol shows the pat ient still in heart failure. ASSESSMENT: 1. Congestive heart failure refractory. 2. Cardiomyopathy. PLAN: 1. Try again with intravenous Lasix. 2. Stop IV fluid. 3. We will review echocardiogram. Prognosis in this patient appears poor. She has had progressivel y worse heart failure despite good medical therapy.
[2017-09-12] MEDS: ALPRAZolam 0.5 MG TAB PO SCH (20:03)
[2017-09-12] MEDS: Atorvastatin Calcium 20 MG TAB PO SCH (20:03)
[2017-09-13] MEDS: Furosemide 20 MG/2 ML VIAL SLOW IVP SCH ×2 (05:26→14:36)
[2017-09-13 05:45] LABS: Anion Gap 10 mmol/L (10-20); BUN (Urea Nitrogen) 19 mg/dL (7.0-18.7); Calc. Creatinine Clearance 90 mL/min (70-130); Calcium 9.4 mg/dL (7.8-10.44); Carbon Dioxide 24 mmol/L (22-29); Chloride 107 mmol/L (98-107); Estimated GFR-MDRD 86; Glucose 145 mg/dL (70-105); Iron 38 ug/dL (50-170); Potassium 4.3 mmol/L (3.5-5.1); Sodium 137 mmol/L (136-145)
[2017-09-13 05:46] LABS: Iron Binding Capacity, Total 316 mcg/dL (265-497)
[2017-09-13 05:47] LABS: Iron 38 ug/dL (50-170)
[2017-09-13] MEDS: Aspirin 81 mg Enteric Coated Tablet PO SCH (08:32)
[2017-09-13] MEDS: Spironolactone 25 MG TAB PO SCH ×2 (08:33→17:27)
[2017-09-13] MEDS: Docusate 100 MG CAP PO SCH ×2 (08:34→21:41)
[2017-09-13] MEDS: metFORMIN 500 MG TAB PO SCH ×2 (08:34→17:23)
[2017-09-13] MEDS: glipiZIDE 10 MG TAB PO SCH ×2 (08:34→17:27)
[2017-09-13] MEDS: Magnesium Oxide 400 MG TAB PO SCH (08:34)
[2017-09-13] MEDS: Enoxaparin Sodium 40 MG/0.4 ML SYRINGE SC SCH (08:35)
[2017-09-13] MEDS: Ferrous Sulfate 325 MG TAB PO SCH (08:37)
[2017-09-13] MEDS ORDERED: Iron Dextran 500 MG in Sodium Chloride 0.9% 250 ML IVPB SCH (08:45)
[2017-09-13] MEDS: Insulin Detemir 100 UNITS/ML 45 UNITS in Pre-Filled Syringe 1 EACH SC SCH ×2 (09:47→21:41)
--- NOTE | 2017-09-13 13:49 | PRG ---
DATE OF SERVICE: 09/13/2017 SUBJECTIVE: Ms. Beck is somewhat nauseated, does not feel well. PHYSICAL EXAMINATION: VITAL SIGNS: Her blood pressure is 96/60, pulse is 120, sinus. NECK: Veins are not distended. LUNGS: Clear. CARDIAC: She is tachycardic, no murmur. ABDOMEN: Soft, nontender. EXTREMITIES: No clubbing, cyanosis or edema. Checking the OptiVol yesterday was very high. Echocardiogram showed ejection fraction 10%-15%, which is worse than it was 2 years ago. The patient is receiving iron for iron deficiency anemia. Her he moglobin was not severely low at 10.2, but her iron level was low at 38 and the ferritin 89.25. ASSESSMENT: Cardiomyopathy, severe, worsened since being treated for 2 years for a cardiomyopathy wi th ULISES inhibitors, beta blockers and subsequently Entresto instead of ULISES inhibitors. PLAN: 1. She is receiving iron. 2. Diuretics have been reinstituted. 3. Prognosis appears poor. She is really not improving, in fact gotten worse. Consideration for re ferral for possible transplantation was discussed with the patient. She then tried to absorb some of this information. She thinks if that is the best road, then she is certainly willing to pursue this .
--- NOTE | 2017-09-13 14:32 | PDOC.PN ---
- Subjective Encounter Start Date: 09/13/17 Encounter Start Time: 07:00 Pt seen for followup re: CHF exacerbation. Denies chest pain. No cough or fever. - Objective Resuscitation Status: Resuscitation Status FULL:Full Resuscitation MAR Reviewed: Yes Vital Signs & Weight: Vital Signs (12 hours) Temp Pulse Resp BP BP 09/13/17 08:45 98.8 F 101 H 18 09/13/17 08:00 98.8 F 101 H 18 94/60 09/13/17 04:15 97.8 F 101 H 18 101/67 Weight Weight 151 lb 11.2 oz I&O: 09/12/17 09/13/17 09/14/17 06:59 06:59 06:59 Intake Total 2157.5 1304.4 Output Total 1600 1160 Balance 557.5 144.4 Result Diagrams: 09/10/17 04:10 09/13/17 04:57 Additional Labs: Accuchecks 09/13/17 09/12/17 09/12/17 10:28 21:14 16:19 POC Glucose 196 H 91 100 09/12/17 14:28 POC Glucose 116 H EKG Reviewed by me: Yes (Tele: NSR) Phys Exam - Physical Examination Constitutional: NAD HEENT: moist MMs Neck: supple Geovany crackles Cardiovascular: RRR Gastrointestinal: soft Neurological: moves all 4 limbs Psychiatric: normal affect Skin: no rash Dx/Plan (1) Acute on chronic systolic (congestive) heart failure Code(s): I50.23 - ACUTE ON CHRONIC SYSTOLIC (CONGESTIVE) HEART FAILURE Status : Acute Comment: Received furosemide Beta otto and ACEI on hold due to hypotension (2) Hypotension Status: Acute Comment: On dopamine drip as needed (3) Hyperlipidemia Code(s): E78.5 - HYPERLIPIDEMIA, UNSPECIFIED Status: Chronic (4) Hypertension Code(s): I10 - ESSENTIAL (PRIMARY) HYPERTENSION Status: Chronic Qualifiers: Hypertension type: essential hypertension Qualified Code(s): I10 - Essential (primary) hypertension Comment: Antihypertensives on hold due to hypotension (5) S/P implantation of automatic cardioverter/defibrillator (AICD) Code(s): Z95.810 - PRESENCE OF AUTOMATIC (IMPLANTABLE) CARDIAC DEFIBRILLATOR Status: Chronic (6) Diabetes mellitus, type II, insulin dependent Code(s): E11.9 - TYPE 2 DIABETES MELLITUS WITHOUT COMPLICATIONS; Z79.4 - SCIENTIFIC HELPER (CURRENT) USE OF INSULIN Status: Chronic Comment: Continue accuchecks, insulin sliding scale (7) Non-ischemic cardiomyopathy Code(s): I42.9 - CARDIOMYOPATHY, UNSPECIFIED Status: Chronic (8) Hypokalemia Code(s): E87.6 - HYPOKALEMIA Status: Resolved - Plan * . Review of Systems - Review of Systems Respiratory: negative: Cough, Dry, Shortness of Breath, Hemoptysis, SOB with Excertion, Pleuritic Pain, Sputum, Wheezing Cardiovascular: negative: chest pain, palpitations, orthopnea, paroxysmal nocturnal dyspnea, edema, light headedness - Medications/Allergies Allergies/Adverse Reactions: Allergies Allergy/AdvReac Type Severity Reaction Status Date / Time azithromycin Allergy Mild Rash Verified 09/08/17 19:42 erythromycin base Allergy Verified 09/08/17 19:42 [From E-Mycin] Latex, Natural Rubber Allergy Verified 09/08/17 19:42 propoxyphene napsylate Allergy Verified 09/08/17 19:42 [From Darvocet-N] Medications: Current Medications Acetaminophen (Tylenol) 650 mg PO Q4H PRN PRN Reason: Headache/Fever or Pain Acetaminophen (Tylenol) 650 mg [place] Q4H PRN PRN Reason: Headache/Fever or Pain Alprazolam (Xanax) 0.5 mg PO [facility] Last Admin: 09/12/17 20:03 Dose: 0.5 mg Atorvastatin Calcium (Lipitor) 20 mg PO [facility] Last Admin: 09/12/17 20:03 Dose: 20 mg Bisacodyl (Dulcolax) 10 mg PO DAILYPRN PRN PRN Reason: Constipation Dextrose/Water (Dextrose 50%) 25 gm SLOW IVP PRN PRN PRN Reason: Hypoglycemia Last Admin: 09/12/17 13:31 Dose: 25 gm Docusate Sodium (Colace) 100 mg PO BID [facility] Last Admin: 09/13/17 08:34 Dose: 100 mg Enoxaparin Sodium (Lovenox) 40 mg SC 0900 [facility] Last Admin: 09/13/17 08:35 Dose: 40 mg Ferrous Sulfate (Feosol) 325 mg PO QA-[facility] Last Admin: 09/13/17 08:37 Dose: 325 mg Furosemide (Lasix) 20 mg SLOW IVP 0600,1400 [facility] Last Admin: 09/13/17 05:26 Dose: 20 mg Glipizide (Glucotrol) 10 mg PO BID[facility] Last Admin: 09/13/17 08:34 Dose: 10 mg Glucagon (Glucagon) 1 mg IM PRN PRN PRN Reason: Hypoglycemia Dextrose/Water (D5w) 1,000 mls @ 0 mls/hr IV .Q0M PRN; As Directed PRN Reason: Hypoglycemia Sodium Chloride (Normal Saline 0.9%) 250 mls @ 0 mls/hr IVPB .BOLUS PRN; As Directed PRN Reason: SBP<90 Last Admin: 09/10/17 00:35 Dose: 250 mls Insulin Detemir 45 units/ (Miscellaneous Medication) 0.45 mls @ 0 mls/hr SC BID [facility] Last Admin: 09/13/17 09:47 Dose: 0.45 mls Dopamine HCl/Dextrose (Dopamine/D5w) 250 mls @ 3.702 mls/hr IVPB INF MEDARDO; 1.5 MCG/KG/MIN PRN Reason: Protocol Insulin Human Lispro (Humalog) 0 units SC .MODERATE SLIDING SC PRN PRN Reason: Moderate Correctional Scale Last Admin: 09/10/17 11:46 Dose: 4 unit Insulin Human Lispro (Humalog) 0 units SC .BEDTIME SLIDING SC PRN PRN Reason: Bedtime Correctional Scale Last Admin: 09/09/17 21:12 Dose: 3 unit Magnesium Oxide (Magnesium Oxide) 400 mg PO DAILY [facility] Last Admin: 09/13/17 08:34 Dose: 400 mg Metformin HCl (Glucophage) 1,000 mg PO BID-[facility] Last Admin: 09/13/17 08:34 Dose: 1,000 mg Ondansetron HCl (Zofran Odt) 4 mg PO Q6H PRN PRN Reason: Nausea/Vomiting Last Admin: 09/12/17 11:52 Dose: 4 mg Ondansetron HCl (Zofran) 4 mg IVP Q6H PRN PRN Reason: Nausea/Vomiting Pantoprazole Sodium (Protonix) 40 mg PO DAILY PRN PRN Reason: Indigestion Sodium Chloride (Flush - Normal Saline) 10 ml IVF Q12HR [facility] Last Admin: 09/13/17 08:38 Dose: Not Given Sodium Chloride (Flush - Normal Saline) 10 ml IVF PRN PRN PRN Reason: Saline Flush Spironolactone (Aldactone) 25 mg PO PRN PRN PRN Reason: SBP =/> 110 Spironolactone (Aldactone) 25 mg PO BID-[facility] Last Admin: 09/13/17 08:33 Dose: 25 mg
[2017-09-13] MEDS: DOPamine 400 MG/D5W 250 ML 250 ML IVPB SCH (14:42)
[2017-09-13] MEDS: Ondansetron ODT 4 MG TAB PO PRN (14:43)
[2017-09-13] MEDS: ALPRAZolam 0.5 MG TAB PO SCH (21:41)
[2017-09-13] MEDS: Atorvastatin Calcium 20 MG TAB PO SCH (21:41)
[2017-09-14 05:53] LABS: Anion Gap 14 mmol/L (10-20); BUN (Urea Nitrogen) 20 mg/dL (7.0-18.7); Calc. Creatinine Clearance 83 mL/min (70-130); Calcium 9.3 mg/dL (7.8-10.44); Carbon Dioxide 24 mmol/L (22-29); Chloride 105 mmol/L (98-107); Estimated GFR-MDRD 78; Glucose 87 mg/dL (70-105); Potassium 3.9 mmol/L (3.5-5.1); Sodium 139 mmol/L (136-145)
[2017-09-14] MEDS: Spironolactone 25 MG TAB PO SCH ×2 (09:16→17:49)
[2017-09-14] MEDS: Enoxaparin Sodium 40 MG/0.4 ML SYRINGE SC SCH (09:16)
[2017-09-14] MEDS: metFORMIN 500 MG TAB PO SCH ×2 (09:16→17:49)
[2017-09-14] MEDS: Magnesium Oxide 400 MG TAB PO SCH (09:16)
[2017-09-14] MEDS: Docusate 100 MG CAP PO SCH ×2 (09:16→20:21)
[2017-09-14] MEDS: Ferrous Sulfate 325 MG TAB PO SCH (09:16)
[2017-09-14] MEDS: glipiZIDE 10 MG TAB PO SCH ×2 (09:16→17:51)
[2017-09-14] MEDS: DOPamine 400 MG/D5W 250 ML 250 ML IVPB SCH (09:19)
[2017-09-14] MEDS: Furosemide 20 MG/2 ML VIAL SLOW IVP SCH ×2 (09:25→14:17)
[2017-09-14] MEDS: Insulin Detemir 100 UNITS/ML 45 UNITS in Pre-Filled Syringe 1 EACH SC SCH ×2 (10:21→21:32)
--- NOTE | 2017-09-14 12:10 | PDOC.PN ---
- Subjective Encounter Start Date: 09/14/17 Encounter Start Time: 07:00 Pt seen for followup re: CHF exacerbation. Denies dizziness. No nausea or vomiting. Feels weak. - Objective Resuscitation Status: Resuscitation Status FULL:Full Resuscitation MAR Reviewed: Yes Vital Signs & Weight: Vital Signs (12 hours) Temp Pulse Resp BP BP Pulse Ox 09/14/17 11:58 98.3 F 105 H 21 H 102/57 L 96 09/14/17 08:00 98.3 F 106 H 20 91/52 L 94 L 09/14/17 04:00 97.7 F 98 18 103/63 94 L Weight Weight 143 lb 14.4 oz I&O: 09/13/17 09/14/17 09/15/17 06:59 06:59 06:59 Intake Total 1304.4 1214 Output Total 1160 1884 Balance 144.4 -670 Result Diagrams: 09/10/17 04:10 09/14/17 05:08 Additional Labs: Accuchecks 09/14/17 09/13/17 09/13/17 06:00 19:59 16:25 POC Glucose 85 121 H 93 09/13/17 05:32 POC Glucose 149 H EKG Reviewed by me: Yes Phys Exam - Physical Examination Constitutional: NAD HEENT: PERRLA, moist MMs, sclera anicteric, oral pharynx no lesions Neck: supple Respiratory: no wheezing, no rhonchi Bibasal crackles Cardiovascular: RRR, no rub Musculoskeletal: no edema Neurological: moves all 4 limbs Psychiatric: normal affect, A&O x 3 Dx/Plan (1) Acute on chronic systolic (congestive) heart failure Code(s): I50.23 - ACUTE ON CHRONIC SYSTOLIC (CONGESTIVE) HEART FAILURE Status : Acute Comment: Cardiology service discussed with pt re: possibility of cardiac transplant. Received furosemide. Beta otto and ACEI on hold due to hypotension (2) Hypotension Status: Acute Comment: On dopamine drip (3) Hyperlipidemia Code(s): E78.5 - HYPERLIPIDEMIA, UNSPECIFIED Status: Chronic (4) Hypertension Code(s): I10 - ESSENTIAL (PRIMARY) HYPERTENSION Status: Chronic Qualifiers: Hypertension type: essential hypertension Qualified Code(s): I10 - Essential (primary) hypertension Comment: Antihypertensives on hold, pt is on dopamine drip (5) S/P implantation of automatic cardioverter/defibrillator (AICD) Code(s): Z95.810 - PRESENCE OF AUTOMATIC (IMPLANTABLE) CARDIAC DEFIBRILLATOR Status: Chronic (6) Diabetes mellitus, type II, insulin dependent Code(s): E11.9 - TYPE 2 DIABETES MELLITUS WITHOUT COMPLICATIONS; 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 Review of Systems - Review of Systems Constitutional: weakness. negative: fever, chills, sweats, malaise Respiratory: SOB with Excertion. negative: Cough, Dry, Shortness of Breath, Hemoptysis, Pleuritic Pain, Sputum, Wheezing Cardiovascular: negative: chest pain, palpitations, orthopnea, paroxysmal nocturnal dyspnea, edema, light headedness Gastrointestinal: negative: Nausea, Vomiting, Abdominal Pain, Diarrhea, Constipation, Melena, Hematochezia Genitourinary: negative: Dysuria, Frequency, Incontinence, Hematuria, Retention - Medications/Allergies Allergies/Adverse Reactions: Allergies Allergy/AdvReac Type Severity Reaction Status Date / Time azithromycin Allergy Mild Rash Verified 09/08/17 19:42 erythromycin base Allergy Verified 09/08/17 19:42 [From E-Mycin] Latex, Natural Rubber Allergy Verified 09/08/17 19:42 propoxyphene napsylate Allergy Verified 09/08/17 19:42 [From Darvocet-N] Medications: Current Medications Acetaminophen (Tylenol) 650 mg PO Q4H PRN PRN Reason: Headache/Fever or Pain Acetaminophen (Tylenol) 650 mg [place] Q4H PRN PRN Reason: Headache/Fever or Pain Alprazolam (Xanax) 0.5 mg PO HS MEDARD[facility] Last Admin: 09/13/17 21:41 Dose: 0.5 mg Atorvastatin Calcium (Lipitor) 20 mg PO HS [facility] Last Admin: 09/13/17 21:41 Dose: 20 mg Bisacodyl (Dulcolax) 10 mg PO DAILYPRN PRN PRN Reason: Constipation Dextrose/Water (Dextrose 50%) 25 gm SLOW IVP PRN PRN PRN Reason: Hypoglycemia Last Admin: 09/12/17 13:31 Dose: 25 gm Docusate Sodium (Colace) 100 mg PO BID [facility] Last Admin: 09/14/17 09:16 Dose: 100 mg Enoxaparin Sodium (Lovenox) 40 mg SC 0900 [facility] Last Admin: 09/14/17 09:16 Dose: 40 mg Ferrous Sulfate (Feosol) 325 mg PO QAM[facility] Last Admin: 09/14/17 09:16 Dose: 325 mg Furosemide (Lasix) 20 mg SLOW IVP 0600,1400 [facility] Last Admin: 09/14/17 09:25 Dose: Not Given Glipizide (Glucotrol) 10 mg PO BID-[facility] Last Admin: 09/14/17 09:16 Dose: 10 mg Glucagon (Glucagon) 1 mg IM PRN PRN PRN Reason: Hypoglycemia Dextrose/Water (D5w) 1,000 mls @ 0 mls/hr IV .Q0M PRN; As Directed PRN Reason: Hypoglycemia Sodium Chloride (Normal Saline 0.9%) 250 mls @ 0 mls/hr IVPB .BOLUS PRN; As Directed PRN Reason: SBP<90 Last Admin: 09/10/17 00:35 Dose: 250 mls Insulin Detemir 45 units/ (Miscellaneous Medication) 0.45 mls @ 0 mls/hr SC BID [facility] Last Admin: 09/14/17 10:21 Dose: 0.45 mls Dopamine HCl/Dextrose (Dopamine/D5w) 250 mls @ 3.702 mls/hr IVPB INF [facility]ARD[facility]; 1.5 MCG/KG/MIN PRN Reason: Protocol Last Admin: 09/14/17 09:19 Dose: 250 mls Insulin Human Lispro (Humalog) 0 units SC .MODERATE SLIDING SC PRN PRN Reason: Moderate Correctional Scale Last Admin: 09/10/17 11:46 Dose: 4 unit Insulin Human Lispro (Humalog) 0 units SC .BEDTIME SLIDING SC PRN PRN Reason: Bedtime Correctional Scale Last Admin: 09/09/17 21:12 Dose: 3 unit Magnesium Oxide (Magnesium Oxide) 400 mg PO DAILY [facility] Last Admin: 09/14/17 09:16 Dose: 400 mg Metformin HCl (Glucophage) 1,000 mg PO BID-[facility] Last Admin: 09/14/17 09:16 Dose: 1,000 mg Ondansetron HCl (Zofran Odt) 4 mg PO Q6H PRN PRN Reason: Nausea/Vomiting Last Admin: 09/13/17 14:43 Dose: 4 mg Ondansetron HCl (Zofran) 4 mg IVP Q6H PRN PRN Reason: Nausea/Vomiting Pantoprazole Sodium (Protonix) 40 mg PO DAILY PRN PRN Reason: Indigestion Sodium Chloride (Flush - Normal Saline) 10 ml IVF Q12HR [facility] Last Admin: 09/14/17 10:22 Dose: 10 ml Sodium Chloride (Flush - Normal Saline) 10 ml IVF PRN PRN PRN Reason: Saline Flush Last Admin: 09/14/17 09:17 Dose: 10 ml Spironolactone (Aldactone) 25 mg PO PRN PRN PRN Reason: SBP =/> 110 Spironolactone (Aldactone) 25 mg PO BID-[facility] Last Admin: 09/14/17 09:16 Dose: 25 mg
--- NOTE | 2017-09-14 15:31 | PRG ---
DATE OF SERVICE: 09/14/2017 SUBJECTIVE: Ms. Beck is doing better. OBJECTIVE: VITAL SIGNS: Her blood pressure is running between 91 systolic and 102 systolic. Pulse is slightly better at 105, was up to 120 yesterday. LUNGS: Clear. CARDIAC: Normal S1, normal S2. ABDOMEN: Soft, nontender. EXTREMITIES: There is no edema. ASSESSMENT: Congestive heart failure, systolic, acute on chronic with a worsening ejection fraction despite medicine, is relatively low blood pressure. PLAN: 1. Continue furosemide. 2. We will start again on carvedilol, hold if systolic blood pressure is under 90. 3. Hopefully can resume angiotensin receptor otto for tomorrow. 4. Check base met tomorrow.
[2017-09-14] MEDS: Atorvastatin Calcium 20 MG TAB PO SCH (20:21)
[2017-09-14] MEDS: ALPRAZolam 0.5 MG TAB PO SCH (20:21)
[2017-09-15 06:01] LABS: Anion Gap 13 mmol/L (10-20); BUN (Urea Nitrogen) 19 mg/dL (7.0-18.7); Calc. Creatinine Clearance 89 mL/min (70-130); Calcium 9.4 mg/dL (7.8-10.44); Carbon Dioxide 24 mmol/L (22-29); Chloride 106 mmol/L (98-107); Estimated GFR-MDRD 89; Sodium 139 mmol/L (136-145)
[2017-09-15 06:09] LABS: Glucose 47 mg/dL (70-105)
[2017-09-15] MEDS: Furosemide 20 MG/2 ML VIAL SLOW IVP SCH ×2 (06:15→14:40)
[2017-09-15] MEDS ORDERED: Carvedilol 3.125 MG TAB PO SCH ×2 (08:00→17:00)
[2017-09-15] MEDS: metFORMIN 500 MG TAB PO SCH ×2 (08:35→16:31)
[2017-09-15] MEDS: glipiZIDE 10 MG TAB PO SCH (08:35)
[2017-09-15] MEDS: Insulin Detemir 100 UNITS/ML 45 UNITS in Pre-Filled Syringe 1 EACH SC SCH ×2 (08:35→22:42)
[2017-09-15] MEDS: Docusate 100 MG CAP PO SCH ×2 (08:39→20:45)
[2017-09-15] MEDS: Spironolactone 25 MG TAB PO SCH ×2 (08:42→16:31)
[2017-09-15] MEDS: Magnesium Oxide 400 MG TAB PO SCH (08:42)
[2017-09-15] MEDS: Ferrous Sulfate 325 MG TAB PO SCH (08:42)
[2017-09-15] MEDS: Enoxaparin Sodium 40 MG/0.4 ML SYRINGE SC SCH (08:42)
--- NOTE | 2017-09-15 14:34 | PDOC.PN ---
- Subjective Encounter Start Date: 09/15/17 Encounter Start Time: 07:40 Pt seen for followup re: CHF exacerbation. Sitting in chair, feels better. - Objective Resuscitation Status: Resuscitation Status FULL:Full Resuscitation MAR Reviewed: Yes Vital Signs & Weight: Vital Signs (12 hours) Temp Pulse Resp BP Pulse Ox 09/15/17 12:05 97.9 F 108 H 16 115/70 100 09/15/17 08:35 98.0 F 99 14 99/68 98 09/15/17 04:00 97.6 F 103 H 18 93/62 96 Weight Weight 145 lb 4 oz I&O: 09/14/17 09/15/17 09/16/17 06:59 06:59 06:59 Intake Total 1214 1217 Output Total 2554 1450 Balance -670 -233 Result Diagrams: 09/10/17 04:10 09/15/17 04:57 Additional Labs: Accuchecks 09/15/17 09/15/17 09/15/17 10:43 07:18 05:37 POC Glucose 115 H 70 72 09/14/17 09/14/17 09/14/17 20:20 17:50 16:59 POC Glucose 64 L 95 62 L EKG Reviewed by me: Yes (Tele; sinus tachycardia) Phys Exam - Physical Examination Constitutional: NAD HEENT: moist MMs Neck: supple Respiratory: clear to auscultation bilateral S1, S2, reg, tachy Gastrointestinal: soft Neurological: moves all 4 limbs Psychiatric: normal affect Dx/Plan (1) Acute on chronic systolic (congestive) heart failure Code(s): I50.23 - ACUTE ON CHRONIC SYSTOLIC (CONGESTIVE) HEART FAILURE Status : Acute Comment: Cardiology service discussed with pt re: possibility of cardiac transplant. Pt getting furosemide when blood pressure allows (2) Hypotension Status: Acute Comment: dopamine drip discontinued (3) Hyperlipidemia Code(s): E78.5 - HYPERLIPIDEMIA, UNSPECIFIED Status: Chronic (4) Hypertension Code(s): I10 - ESSENTIAL (PRIMARY) HYPERTENSION Status: Chronic Qualifiers: Hypertension type: essential hypertension Qualified Code(s): I10 - Essential (primary) hypertension Comment: Trying to reinstate antihypertensives (beta otto and ARB). 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 Review of Systems - Review of Systems Respiratory: SOB with Excertion. negative: Cough, Dry, Shortness of Breath, Hemoptysis, Pleuritic Pain, Sputum, Wheezing Cardiovascular: negative: chest pain, palpitations, orthopnea, paroxysmal nocturnal dyspnea, edema, light headedness - Medications/Allergies Allergies/Adverse Reactions: Allergies Allergy/AdvReac Type Severity Reaction Status Date / Time azithromycin Allergy Mild Rash Verified 09/08/17 19:42 erythromycin base Allergy Verified 09/08/17 19:42 [From E-Mycin] Latex, Natural Rubber Allergy Verified 09/08/17 19:42 propoxyphene napsylate Allergy Verified 09/08/17 19:42 [From Darvocet-N] Medications: Current Medications Acetaminophen (Tylenol) 650 mg PO Q4H PRN PRN Reason: Headache/Fever or Pain Acetaminophen (Tylenol) 650 mg [place] Q4H PRN PRN Reason: Headache/Fever or Pain Alprazolam (Xanax) 0.5 mg PO [facility] Last Admin: 09/14/17 20:21 Dose: 0.5 mg Atorvastatin Calcium (Lipitor) 20 mg PO [facility] Last Admin: 09/14/17 20:21 Dose: 20 mg Bisacodyl (Dulcolax) 10 mg PO DAILYPRN PRN PRN Reason: Constipation Carvedilol (Coreg) 3.125 mg PO BID-[facility] Dextrose/Water (Dextrose 50%) 25 gm SLOW IVP PRN PRN PRN Reason: Hypoglycemia Last Admin: 09/12/17 13:31 Dose: 25 gm Docusate Sodium (Colace) 100 mg PO BID [facility] Last Admin: 09/15/17 08:39 Dose: Not Given Enoxaparin Sodium (Lovenox) 40 mg SC 0900 [facility] Last Admin: 09/15/17 08:42 Dose: 40 mg Ferrous Sulfate (Feosol) 325 mg PO QA-[facility] Last Admin: 09/15/17 08:42 Dose: 325 mg Furosemide (Lasix) 20 mg SLOW IVP 0600,1400 [facility] Glucagon (Glucagon) 1 mg IM PRN PRN PRN Reason: Hypoglycemia Dextrose/Water (D5w) 1,000 mls @ 0 mls/hr IV .Q0M PRN; As Directed PRN Reason: Hypoglycemia Sodium Chloride (Normal Saline 0.9%) 250 mls @ 0 mls/hr IVPB .BOLUS PRN; As Directed PRN Reason: SBP<90 Last Admin: 09/10/17 00:35 Dose: 250 mls Insulin Detemir 45 units/ (Miscellaneous Medication) 0.45 mls @ 0 mls/hr SC BID [facility] Last Admin: 09/15/17 08:35 Dose: Not Given Insulin Human Lispro (Humalog) 0 units SC .MODERATE SLIDING SC PRN PRN Reason: Moderate Correctional Scale Last Admin: 09/10/17 11:46 Dose: 4 unit Insulin Human Lispro (Humalog) 0 units SC .BEDTIME SLIDING SC PRN PRN Reason: Bedtime Correctional Scale Last Admin: 09/09/17 21:12 Dose: 3 unit Magnesium Oxide (Magnesium Oxide) 400 mg PO DAILY [facility] Last Admin: 09/15/17 08:42 Dose: 400 mg Metformin HCl (Glucophage) 1,000 mg PO BID-[facility] Last Admin: 09/15/17 08:35 Dose: Not Given Ondansetron HCl (Zofran Odt) 4 mg PO Q6H PRN PRN Reason: Nausea/Vomiting Last Admin: 09/13/17 14:43 Dose: 4 mg Ondansetron HCl (Zofran) 4 mg IVP Q6H PRN PRN Reason: Nausea/Vomiting Pantoprazole Sodium (Protonix) 40 mg PO DAILY PRN PRN Reason: Indigestion Sacubitril/Valsartan (Entresto 24.5 Mg-25.5 Mg Tablet) 1 tab PO BID [facility] Sodium Chloride (Flush - Normal Saline) 10 ml IVF Q12HR [facility] Last Admin: 09/15/17 08:43 Dose: 10 ml Sodium Chloride (Flush - Normal Saline) 10 ml IVF PRN PRN PRN Reason: Saline Flush Last Admin: 09/15/17 06:16 Dose: 10 ml Spironolactone (Aldactone) 25 mg PO PRN PRN PRN Reason: SBP =/> 110 Spironolactone (Aldactone) 25 mg PO BID-[facility] Last Admin: 09/15/17 08:42 Dose: 25 mg
[2017-09-15] MEDS: Carvedilol 3.125 MG TAB PO SCH (16:31)
[2017-09-15] MEDS ORDERED: Carvedilol 6.25 MG TAB PO SCH (17:00)
[2017-09-15] MEDS: ALPRAZolam 0.5 MG TAB PO SCH (20:45)
[2017-09-15] MEDS: Atorvastatin Calcium 20 MG TAB PO SCH (20:45)
--- NOTE | 2017-09-16 00:44 | PRG ---
DATE OF SERVICE: 09/15/2017 SUBJECTIVE: Ms. Beck is doing okay. She did get hypoglycemic this morning. PHYSICAL EXAMINATION: VITAL SIGNS: Her blood pressure was 99/68. She did not receive the Coreg, pulse now is 108, most re cent blood pressure is 115/70 which is really quite high for her. LUNGS: Clear. CARDIAC: She is tachycardic. ABDOMEN: Soft and nontender. EXTREMITIES: There is no edema. LABORATORY DATA: She had blood glucose of 47 at 5:00 a.m. ASSESSMENT: 1. Diabetes. 2. Hypoglycemia. 3. Congestive heart failure, severe systolic. 4. Relatively low blood pressure. PLAN: 1. Try to get the Coreg, hold only if the systolic is under 90. 2. Trial again with Entresto low dose hold if systolic under 90. 3. Continue furosemide. 4. Continue spironolactone. 5. Would stop Glucotrol. She probably needs to have the insulin dose reduced as well. 6. Refractory heart failure, consideration for referral to a transplant center to see if she would b e a candidate. We will keep the patient over the weekend.
[2017-09-16] MEDS: Furosemide 20 MG/2 ML VIAL SLOW IVP SCH ×2 (05:38→14:24)
[2017-09-16 06:34] LABS: Anion Gap 11 mmol/L (10-20); BUN (Urea Nitrogen) 22 mg/dL (7.0-18.7); Calc. Creatinine Clearance 81 mL/min (70-130); Calcium 9.8 mg/dL (7.8-10.44); Carbon Dioxide 24 mmol/L (22-29); Chloride 105 mmol/L (98-107); Estimated GFR-MDRD 81; Glucose 163 mg/dL (70-105); Sodium 136 mmol/L (136-145)
[2017-09-16] MEDS ORDERED: Sacubitril 24.5 MG/Valsartan 25.5 MG TABLET PO SCH (09:00)
[2017-09-16] MEDS: Carvedilol 3.125 MG TAB PO SCH ×2 (09:07→16:43)
[2017-09-16] MEDS: Spironolactone 25 MG TAB PO SCH ×2 (09:08→16:42)
[2017-09-16] MEDS: metFORMIN 500 MG TAB PO SCH ×2 (09:09→16:43)
[2017-09-16] MEDS: Ferrous Sulfate 325 MG TAB PO SCH (09:09)
[2017-09-16] MEDS: Docusate 100 MG CAP PO SCH ×2 (09:09→20:19)
[2017-09-16] MEDS: Magnesium Oxide 400 MG TAB PO SCH (09:10)
[2017-09-16] MEDS: Sacubitril 24.5 MG/Valsartan 25.5 MG TABLET PO SCH ×2 (09:10→20:19)
[2017-09-16] MEDS: Enoxaparin Sodium 40 MG/0.4 ML SYRINGE SC SCH (09:10)
[2017-09-16] MEDS: Insulin Detemir 100 UNITS/ML 45 UNITS in Pre-Filled Syringe 1 EACH SC SCH (09:10)
[2017-09-16] MEDS: HumaLOG 300 UNITS/3 ML VIAL SC PRN ×2 (11:47→16:43)
--- NOTE | 2017-09-16 11:48 | PDOC.PN ---
- Subjective Encounter Start Date: 09/16/17 Encounter Start Time: 11:46 Ms. Gonzalez was seen in follow-up of CHF exacerbation. She says she feels ok, just a little overwhelmed. She is breathing better, and denies any chest pain. - Objective Resuscitation Status: Resuscitation Status FULL:Full Resuscitation MAR Reviewed: Yes Vital Signs & Weight: Vital Signs (12 hours) Temp Pulse Resp BP Pulse Ox 09/16/17 09:05 97.9 F 103 H 14 89/57 L 99 09/16/17 05:41 99/67 09/16/17 04:00 98.3 F 97 18 91/52 L 95 Weight Weight 143 lb 9 oz I&O: 09/15/17 09/16/17 09/17/17 06:59 06:59 06:59 Intake Total 1217 1040 Output Total 1450 1200 Balance -233 -160 Result Diagrams: 09/10/17 04:10 09/16/17 05:42 Additional Labs: Accuchecks 09/16/17 09/15/17 09/15/17 05:37 20:56 16:40 POC Glucose 161 H 200 H 182 H Phys Exam - Physical Examination HEENT: PERRLA Respiratory: no wheezing, no rales, clear to auscultation bilateral Cardiovascular: RRR, no significant murmur, no rub Gastrointestinal: soft, non-tender, positive bowel sounds Musculoskeletal: no edema Dx/Plan (1) Acute on chronic systolic (congestive) heart failure Code(s): I50.23 - ACUTE ON CHRONIC SYSTOLIC (CONGESTIVE) HEART FAILURE Status : Acute Comment: Cardiology service discussed with pt re: possibility of cardiac transplant. Pt getting furosemide when blood pressure allows (2) Hyperlipidemia Code(s): E78.5 - HYPERLIPIDEMIA, UNSPECIFIED Status: Chronic (3) Hypertension Code(s): I10 - ESSENTIAL (PRIMARY) HYPERTENSION Status: Chronic Qualifiers: Hypertension type: essential hypertension Qualified Code(s): I10 - Essential (primary) hypertension Comment: Trying to reinstate antihypertensives (beta otto and ARB). 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
--- NOTE | 2017-09-16 19:38 | PDOC.CTH ---
Cardiology Progress Note - Subjective No new issues or complaints. - Objective Vital Signs Temp Pulse Pulse Pulse Resp BP BP 09/16/17 16:42 09/16/17 15:30 98.3 F 96 16 09/16/17 14:22 09/16/17 12:49 103 H 101 H 110/58 L 90/55 L 09/16/17 11:45 98.6 F 96 16 09/16/17 09:05 97.9 F 103 H 14 BP Pulse Ox Pulse Ox Pulse Ox 09/16/17 16:42 99/68 09/16/17 15:30 96/65 97 09/16/17 14:22 89/56 L 09/16/17 12:49 100 98 09/16/17 11:45 92/60 98 09/16/17 09:05 89/57 L 99 Weight 143 lb 9 oz 09/15/17 09/16/17 09/17/17 06:59 06:59 06:59 Intake Total 1217 1040 720 Output Total 1450 1200 1000 Balance -233 -160 -280 - Physical Examination General/Neuro: alert & oriented x3, NAD Neck: no JVD present Lungs: CTA, unlabored respirations Heart: RRR Abdomen: NT/ND Extremities: other: (no edema.) - Telemetry Telemetry Rhythm: NSR - Labs Result Diagrams: 09/10/17 04:10 09/16/17 05:42 Troponin/CKMB CK-MB (CK-2) 0.5 ng/mL (0-6.6) 09/08/17 15:50 Troponin I 0.010 ng/mL (< 0.028) 09/08/17 15:50 - Assessment/Plan 1. Non ischemic CM EF at 10-15% 2. Acute on chronci systolic heart failure. 3. Relatively low BP PLAN: - Continue current meds. - Currently tolerating low dose Entresto and coreg.
[2017-09-16] MEDS: Atorvastatin Calcium 20 MG TAB PO SCH (20:19)
[2017-09-16] MEDS: ALPRAZolam 0.5 MG TAB PO SCH (20:19)
[2017-09-17] MEDS: Insulin Detemir 100 UNITS/ML 45 UNITS in Pre-Filled Syringe 1 EACH SC SCH ×3 (00:26→21:10)
[2017-09-17] MEDS: Furosemide 20 MG/2 ML VIAL SLOW IVP SCH ×2 (05:35→14:13)
[2017-09-17 06:20] LABS: Anion Gap 11 mmol/L (10-20); BUN (Urea Nitrogen) 23 mg/dL (7.0-18.7); Calc. Creatinine Clearance 75 mL/min (70-130); Calcium 9.6 mg/dL (7.8-10.44); Carbon Dioxide 29 mmol/L (22-29); Chloride 105 mmol/L (98-107); Estimated GFR-MDRD 75; Glucose 134 mg/dL (70-105); Potassium 4.3 mmol/L (3.5-5.1); Sodium 141 mmol/L (136-145)
[2017-09-17] MEDS: Magnesium Oxide 400 MG TAB PO SCH (08:41)
[2017-09-17] MEDS: metFORMIN 500 MG TAB PO SCH ×2 (08:41→17:48)
[2017-09-17] MEDS: Sacubitril 24.5 MG/Valsartan 25.5 MG TABLET PO SCH ×2 (08:41→22:07)
[2017-09-17] MEDS: Ferrous Sulfate 325 MG TAB PO SCH (08:42)
[2017-09-17] MEDS: Enoxaparin Sodium 40 MG/0.4 ML SYRINGE SC SCH (08:42)
[2017-09-17] MEDS: Spironolactone 25 MG TAB PO SCH ×2 (08:42→17:48)
[2017-09-17] MEDS: Carvedilol 3.125 MG TAB PO SCH ×2 (08:42→17:48)
[2017-09-17] MEDS: Docusate 100 MG CAP PO SCH ×2 (08:43→22:07)
--- NOTE | 2017-09-17 10:40 | PDOC.PN ---
- Subjective Encounter Start Date: 09/17/17 Encounter Start Time: 10:38 Ms. Beck was seen today in follow-up. She does not have any complaints this morning. She denies chest pain or shortness of breath. She has ambulated without difficulty. - Objective Resuscitation Status: Resuscitation Status FULL:Full Resuscitation MAR Reviewed: Yes Vital Signs & Weight: Vital Signs (12 hours) Temp Pulse Resp BP Pulse Ox 09/17/17 08:40 98.2 F 97 14 90/59 L 97 09/17/17 05:35 98.1 F 97 18 92/54 L 96 09/17/17 03:19 97 Weight Weight 143 lb 1 oz I&O: 09/16/17 09/17/17 09/18/17 06:59 06:59 06:59 Intake Total 1040 1680 Output Total 1200 1675 Balance -160 5 Result Diagrams: 09/10/17 04:10 09/17/17 05:46 Additional Labs: Accuchecks 09/16/17 09/16/17 09/16/17 20:57 16:31 11:13 POC Glucose 224 H 161 H 193 H Phys Exam - Physical Examination HEENT: PERRLA Respiratory: no wheezing, no rales, no rhonchi, clear to auscultation bilateral Cardiovascular: RRR, no significant murmur, no rub Gastrointestinal: soft, non-tender, positive bowel sounds Musculoskeletal: no edema Dx/Plan (1) Acute on chronic systolic (congestive) heart failure Code(s): I50.23 - ACUTE ON CHRONIC SYSTOLIC (CONGESTIVE) HEART FAILURE Status : Acute Comment: Cardiology service discussed with pt re: possibility of cardiac transplant. Pt getting furosemide when blood pressure allows (2) Hyperlipidemia Code(s): E78.5 - HYPERLIPIDEMIA, UNSPECIFIED Status: Chronic (3) Hypertension Code(s): I10 - ESSENTIAL (PRIMARY) HYPERTENSION Status: Chronic Qualifiers: Hypertension type: essential hypertension Qualified Code(s): I10 - Essential (primary) hypertension Comment: Trying to reinstate antihypertensives (beta otto and ARB). (4) Diabetes mellitus, type II, insulin dependent Code(s): E11.9 - TYPE 2 DIABETES MELLITUS WITHOUT COMPLICATIONS; Z79.4 - DETENTION (CURRENT) USE OF INSULIN Status: Chronic Comment: accuchecks, insulin sliding scale - Plan * Acute on chronic systolic heart failure- improving with diuresis, and Entresto * Hypotension- blood pressure has been in the 90's and she is asymptomatic with this * Await further recommendations from Cardiology in the AM.
[2017-09-17] MEDS: HumaLOG 300 UNITS/3 ML VIAL SC PRN ×2 (12:16→17:48)
--- NOTE | 2017-09-17 18:15 | PDOC.CTH ---
Cardiology Progress Note - Subjective No new issues. She is tolerating her meds. She is walking around with ease. - Objective Vital Signs Temp Pulse Pulse Pulse Resp BP BP 09/17/17 16:59 98.2 F 98 16 09/17/17 12:46 98 97 84/52 L 93/47 L 09/17/17 12:20 97.9 F 96 18 09/17/17 08:40 98.2 F 97 14 BP BP Pulse Ox Pulse Ox Pulse Ox 09/17/17 16:59 90/65 100 09/17/17 12:46 97 99 09/17/17 12:20 97/58 L 98 09/17/17 08:40 90/59 L 97 Weight 143 lb 1 oz 09/16/17 09/17/17 09/18/17 06:59 06:59 06:59 Intake Total 1040 1680 Output Total 1200 1675 Balance -160 5 - Physical Examination General/Neuro: alert & oriented x3, NAD Neck: no JVD present Lungs: CTA, unlabored respirations Heart: RRR Abdomen: NT/ND Extremities: other: (no edema.) - Telemetry Telemetry Rhythm: NSR - Labs Result Diagrams: 09/10/17 04:10 09/17/17 05:46 Troponin/CKMB CK-MB (CK-2) 0.5 ng/mL (0-6.6) 09/08/17 15:50 Troponin I 0.010 ng/mL (< 0.028) 09/08/17 15:50 - Assessment/Plan 1. Non ischemic CM EF at 10-15% 2. Acute on chronci systolic heart failure. 3. Relatively low BP PLAN: - Continue current meds. - Currently tolerating low dose Entresto and coreg. - Home soon.
[2017-09-17] MEDS: Atorvastatin Calcium 20 MG TAB PO SCH (22:07)
[2017-09-17] MEDS: ALPRAZolam 0.5 MG TAB PO SCH (22:07)
[2017-09-18 05:27] LABS: Anion Gap 11 mmol/L (10-20); BUN (Urea Nitrogen) 26 mg/dL (7.0-18.7); Calc. Creatinine Clearance 73 mL/min (70-130); Calcium 9.7 mg/dL (7.8-10.44); Carbon Dioxide 27 mmol/L (22-29); Chloride 103 mmol/L (98-107); Estimated GFR-MDRD 73; Glucose 104 mg/dL (70-105); Potassium 4.4 mmol/L (3.5-5.1); Sodium 137 mmol/L (136-145)
[2017-09-18] MEDS: Furosemide 20 MG/2 ML VIAL SLOW IVP SCH (05:50)
[2017-09-18] MEDS: Ferrous Sulfate 325 MG TAB PO SCH (09:00)
[2017-09-18] MEDS: Carvedilol 3.125 MG TAB PO SCH ×2 (09:00→16:29)
[2017-09-18] MEDS: Insulin Detemir 100 UNITS/ML 45 UNITS in Pre-Filled Syringe 1 EACH SC SCH (09:01)
[2017-09-18] MEDS: metFORMIN 500 MG TAB PO SCH ×2 (09:01→16:29)
[2017-09-18] MEDS: Sacubitril 24.5 MG/Valsartan 25.5 MG TABLET PO SCH (09:01)
[2017-09-18] MEDS: Spironolactone 25 MG TAB PO SCH ×2 (09:01→16:29)
[2017-09-18] MEDS: Magnesium Oxide 400 MG TAB PO SCH (09:01)
[2017-09-18] MEDS: Enoxaparin Sodium 40 MG/0.4 ML SYRINGE SC SCH (09:02)
[2017-09-18] MEDS: Docusate 100 MG CAP PO SCH (09:11)
--- NOTE | 2017-09-18 09:23 | PDOC.PN ---
- Subjective Encounter Start Date: 09/18/17 Encounter Start Time: 09:20 Ms. Gonzalez was seen today in follow-up. She does not have any complaints today. - Objective Resuscitation Status: Resuscitation Status FULL:Full Resuscitation MAR Reviewed: Yes Vital Signs & Weight: Vital Signs (12 hours) Temp Pulse Resp BP BP Pulse Ox 09/18/17 07:37 98.5 F 97 16 83/57 L 95 09/18/17 05:48 94 92/58 L 09/18/17 04:00 97.7 F 93 20 91/56 L 97 09/17/17 22:15 97.6 F 100 20 101/54 L 98 Weight Weight 142 lb 8 oz I&O: 09/17/17 09/18/17 09/19/17 06:59 06:59 06:59 Intake Total 1680 720 Output Total 1675 2000 Balance 5 -1280 Result Diagrams: 09/10/17 04:10 09/18/17 04:18 Additional Labs: Accuchecks 09/18/17 09/17/17 09/17/17 05:49 20:51 16:59 POC Glucose 121 H 100 155 H 09/17/17 11:37 POC Glucose 213 H Phys Exam - Physical Examination HEENT: PERRLA Respiratory: no wheezing, no rales, no rhonchi, clear to auscultation bilateral Cardiovascular: RRR, no significant murmur, no rub Gastrointestinal: soft, non-tender, positive bowel sounds Musculoskeletal: edema present Dx/Plan (1) Acute on chronic systolic (congestive) heart failure Code(s): I50.23 - ACUTE ON CHRONIC SYSTOLIC (CONGESTIVE) HEART FAILURE Status : Acute Comment: Cardiology service discussed with pt re: possibility of cardiac transplant. Pt getting furosemide when blood pressure allows (2) Hyperlipidemia Code(s): E78.5 - HYPERLIPIDEMIA, UNSPECIFIED Status: Chronic (3) Hypertension Code(s): I10 - ESSENTIAL (PRIMARY) HYPERTENSION Status: Chronic Qualifiers: Hypertension type: essential hypertension Qualified Code(s): I10 - Essential (primary) hypertension Comment: Trying to reinstate antihypertensives (beta otto and ARB). 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 Payan- will have the defibrillator interrogated again today with regards to volume overload * If the Heart failure has improved then possible discharge home later today, with outpatient follow-up with her doctors in [place]..
--- NOTE | 2017-09-18 09:29 | PRG ---
DATE OF SERVICE: 09/18/2017 HISTORY: Ms. Beck is feeling better. She is breathing better. PHYSICAL EXAMINATION: VITAL SIGNS: Her blood pressure, however, has been running low, at 4:00 a.m. is was 91/56, at 7:37 i t was 83/57, pulse 97. LUNGS: Clear. CARDIAC: Normal S1, S2. ABDOMEN: Soft, nontender. EXTREMITIES: No edema. NECK: The neck veins are not distended. ASSESSMENT: 1. Congestive heart failure, systolic, acute on chronic - clinically improved, but the doses of the heart failure medicines have been needed to be dramatically reduced. 2. Iron deficiency anemia. She has received intravenous iron. PLAN: 1. Check OptiVol today, probably be released home today to [facility] [place] [facility] to see if she would be a candidate for left ventricular assist device or even transplant. 2. We will give her 1 more dose of intravenous iron. 3. Check OptiVol today. Hopefully, go home.
[2017-09-18] MEDS: HumaLOG 300 UNITS/3 ML VIAL SC PRN (12:37)
[2017-09-18] MEDS ORDERED: Furosemide 20 MG/2 ML VIAL SC SCH ×2 (14:00)
--- NOTE | 2017-09-18 14:59 | PRG ---
DATE OF SERVICE: 09/18/2017 SUBJECTIVE: Ms. Beck is feeling better. She is breathing better. PHYSICAL EXAMINATION: VITAL SIGNS: Her blood pressure is 92/54, pulse 94. LUNGS: Clear. CARDIAC: Normal S1 and normal S2. ABDOMEN: Soft, nontender. EXTREMITIES: There is no edema. ASSESSMENT: Congestive heart failure, clinically better compensated, but the OptiVol is still high, but at least trending the right direction. PLAN: 1. She is on Coreg 3.125 mg twice daily. 2. Atorvastatin 20 mg a day. 3. Lasix changed to 40 mg twice a day starting tomorrow. 4. Potassium 20 mEq daily. 5. Entresto 24/ twice a day. 6. Spironolactone 25 mg twice a day. 7. I asked her to see in the office in a week. We are going to refer her to Dr. Reyes in [place] to see if she would be a candidate for transplantation versus left ventricular assist device.
[2017-09-18 15:30] VITALS: TEMP 97.6
[2017-09-18 16:34] VITALS: BP 92/56
--- NOTE | 2017-09-19 10:59 | DIS ---
DATE OF ADMISSION: 09/08/2017 DATE OF DISCHARGE: 09/18/2017 PRIMARY CARE PHYSICIAN: Kayden Lopez M.D. DISCHARGE DISPOSITION: Home. PRIMARY DISCHARGE DIAGNOSES: 1. Acute on chronic systolic heart failure due to nonischemic cardiomyopathy. 2. Diabetes mellitus type 2, insulin dependent. 3. Hypertension. 4. History of arrhythmia, status post ablation. 5. Dyslipidemia. DISCHARGE MEDICATIONS: 1. Entresto 24.5/25.5 mg twice a day. 2. Spironolactone 25 mg twice daily. 3. Potassium chloride 20 mEq daily. 4. Protonix 40 mg daily. 5. Metformin 1000 mg twice a day. 6. Magnesium oxide 400 mg daily. 7. Levemir insulin 45 units q. day. 8. Lasix 40 mg twice a day. 9. Iron sulfate 325 mg daily. 10. Carvedilol 3.125 mg twice a day. 11. Lipitor 20 mg at bedtime. 12. Alprazolam 0.5 mg at bedtime. PROCEDURES DONE DURING THE ADMISSION: The patient had an echocardiogram in which demonstrated an eje ction fraction of 10% to 15%. Defibrillator wire was noted in the right ventricle, there was severe mitral regurgitation and moderate to severe tricuspid regurgitation. CODE STATUS: FULL CODE. ALLERGIES: AZITHROMYCIN, ERYTHROMYCIN, LATEX, NATURAL RUBBER, DARVOCET and PROPOXYPHENE. HOSPITAL COURSE: Ms. Beck is a pleasant 42-year-old female who presented to the emergency room w ith complaints of shortness of breath and cough. She was found to be in acute on chronic systolic he art failure. She has a known history of dilated cardiomyopathy, which is nonischemic. She has been on medications for several years for this. She was seen by Cardiology and an echocardiogram was obta ined. Unfortunately, her ejection fraction has not improved much and in fact, has worsened little bi t since 2016, on her last recorded echo in our system. Her doses of her medications were adjusted wh ile in the hospital. Most of which were actually decreased during her hospital stay. She was treate d with IV Lasix; however, she had minimal fluid removal with her weight initially being 143 and her w eight at discharge was approximately 142; however, clinically she was improved. Although, just modes tly after her dose of insulin and diabetic medications were decreased, the insulin dose was decreased to only 45 units daily and the DiaBeta or glyburide was discontinued altogether and this was due to low blood sugar that she experienced during the hospital stay. The patient did improve enough to be discharged home; however, Dr. Payan suspected that the patient may not improve much over the course of the next few years, so she continues on the same trajectory as she has in the past 2 years and lik sami will need consideration for therapy and/or cardiac transplantation. The patient was made a rajan of this and plans to follow up with her city controller in [place].
[2017-09-19] MEDS ORDERED: Furosemide 40 MG TAB PO SCH (14:00)
--- NOTE | 2017-10-01 00:24 | EKG ---
Test Reason : Blood Pressure : / mmHG Vent. Rate : 108 BPM Atrial Rate : 108 BPM P-R Int : 144 ms QRS Dur : 088 ms QT Int : 380 ms P-R-T Axes : 058 006 164 degrees QTc Int : 509 ms Poor data quality, interpretation may be adversely affected Sinus tachycardia Possible Left atrial enlargement Nonspecific T wave abnormality Abnormal ECG Confirmed by STEVE DENIS ([id number]), writer editor KAYLEN CHO ([id number]) on 10/01/2017 12:24:15 AM Referred By: Confirmed By:STEVE DENIS
== END 2017-09-18 17:16 | disposition home or self-care (01) | DRG 292 ==
LOC: ERS 14:37 → 2NO 17:23
PROVIDERS: ADMIT Emergency Medicine; ATTEND Emergency Medicine
DX: I11.0 Hypertensive heart disease with heart failure (principal); N17.9 Acute kidney failure, unspecified; I95.9 Hypotension, unspecified; E11.649 Type 2 diabetes mellitus with hypoglycemia without coma; I08.1 Rheumatic disorders of both mitral and tricuspid valves; I42.0 Dilated cardiomyopathy; D50.9 Iron deficiency anemia, unspecified; E78.5 Hyperlipidemia, unspecified; I50.23 Acute on chronic systolic (congestive) heart failure; Z95.810 Presence of automatic (implantable) cardiac defibrillator; I25.10 Atherosclerotic heart disease of native coronary artery without angina pectoris; F41.9 Anxiety disorder, unspecified; F32.9 Major depressive disorder, single episode, unspecified; Z88.1 Allergy status to other antibiotic agents; Z88.5 Allergy status to narcotic agent; Z79.82 Long term (current) use of aspirin; Z79.4 Long term (current) use of insulin; E87.6 Hypokalemia
CPT/HCPCS: 36415; 36416; 71046; 80048; 80053; 82553; 82728; 83540; 83550; 83880; 84484; 85025; 85610; 93005; 93306; 93798; 96374; A4216; J1265; J1650; J1750; J1815; J1940; J2405; J3480; J7050; Q0162

== ENCOUNTER 2021-12-27 19:40 | Observation (INO) | payer MEDICARE, OTHER ==
[2021-12-27 22:39] VITALS: BMI 29.4
[2021-12-27] MEDS ORDERED: Dextrose 50% Abboject 50 ML SYRINGE SLOW IVP PRN ×2 (22:55→23:15)
[2021-12-27] MEDS ORDERED: HumaLOG 300 UNITS/3 ML VIAL SC PRN ×3 (22:55→23:15)
[2021-12-27] MEDS ORDERED: Dextrose 5% in Water 1,000 ML IV PRN ×2 (22:55→23:15)
[2021-12-27] MEDS ORDERED: Nitroglycerin 0.4 MG TAB (25 Tab Bottle) SL PRN (23:04)
[2021-12-27] MEDS ORDERED: ALPRAZolam 0.5 MG TAB PO PRN (23:08)
[2021-12-28] MEDS ORDERED: Morphine 2 MG/ML VIAL SLOW IVP SCH ×2 (00:30→11:15)
[2021-12-28 01:16] LABS: Troponin I Less than 0.010 ng/mL (< 0.028)
[2021-12-28] MEDS ORDERED: Icosapent Ethyl 1 GM CAPSULE PO SCH (08:00)
[2021-12-28 08:03] VITALS: BP 126/72; TEMP 97.7
[2021-12-28] MEDS ORDERED: Regadenoson 0.4 MG/5 ML SYRINGE ONE (08:45)
[2021-12-28] MEDS ORDERED: Furosemide 40 MG TAB PO SCH (09:00)
[2021-12-28] MEDS ORDERED: [UNRECOGNIZED DRUG - OTHER] SQ SCH (09:00)
[2021-12-28] MEDS ORDERED: Empagliflozin 25 MG TAB PO SCH ×2 (09:00)
[2021-12-28] MEDS ORDERED: Non-Formulary Item 1 EACH (Sacubitril/Valsartan [Entresto 97 Mg-103 Mg Tablet] 1 EACH Tab PO SCH (09:00)
[2021-12-28] MEDS ORDERED: Sacubitril 49 MG/Valsartan 51 MG TABLET PO SCH (09:00)
[2021-12-28] MEDS ORDERED: Non-Formulary Item 1 EACH (Spironolactone [Spironolactone] 50 MG Tablet) PO SCH (09:00)
[2021-12-28] MEDS ORDERED: Spironolactone 25 MG TAB PO SCH (09:00)
[2021-12-28] MEDS ORDERED: INSULIN REGULAR HUMAN 500 UNIT/ML SQ SCH (09:00)
[2021-12-28] MEDS ORDERED: Aspirin Chewable 81 MG TAB PO SCH (09:00)
[2021-12-28] MEDS ORDERED: Acetaminophen 500 MG TAB PO PRN (11:01)
[2021-12-28] MEDS ORDERED: Acetaminophen 500 MG TAB PO SCH (11:15)
[2021-12-28] MEDS ORDERED: Atorvastatin Calcium 20 MG TAB PO SCH (21:00)
== END 2021-12-28 19:40 | disposition home or self-care (01) ==
LOC: 2SW 22:26
PROVIDERS: ADMIT Hospitalist; ATTEND Hospitalist
DX: R07.89 Other chest pain (principal); M79.602 Pain in left arm; M54.2 Cervicalgia; I11.0 Hypertensive heart disease with heart failure; I50.20 Unspecified systolic (congestive) heart failure; I42.9 Cardiomyopathy, unspecified; E11.9 Type 2 diabetes mellitus without complications; I08.1 Rheumatic disorders of both mitral and tricuspid valves; M43.12 Spondylolisthesis, cervical region; Z79.4 Long term (current) use of insulin; Z79.82 Long term (current) use of aspirin; Z79.84 Long term (current) use of oral hypoglycemic drugs; Z79.899 Other long term (current) drug therapy; Z88.1 Allergy status to other antibiotic agents; Z88.5 Allergy status to narcotic agent; Z91.040 Latex allergy status; Z95.810 Presence of automatic (implantable) cardiac defibrillator; Z90.5 Acquired absence of kidney; Z20.822 Contact with and (suspected) exposure to COVID-19
CPT/HCPCS: 72040; 78452; 83735; 84484; 93017; 93306; 94760; 96376; A9500; G0378 ×2; J2270; U0003; U0005; 36415; J2785

== ENCOUNTER 2022-09-16 07:54 | Outpatient (CLI) | payer OTHER | END 2022-09-16 07:55 | disposition home or self-care (01) | LOC: NM 07:54 | PROVIDERS: ATTEND Internal Medicine | DX: R68.81 Early satiety (principal) | CPT/HCPCS: 78264; A9541 ==

== ENCOUNTER 2023-03-14 07:19 | Outpatient (CLI) | payer OTHER ==
[2023-03-14] MEDS ORDERED: ISOVUE-370 76% MDV (1 ML CHARGE) ONE (10:27)
== END 2023-03-14 07:20 | disposition home or self-care (01) ==
LOC: BICCT 07:19
PROVIDERS: ATTEND Internal Medicine Gastroenterology
DX: I50.9 Heart failure, unspecified (principal); R10.9 Unspecified abdominal pain; K21.9 Gastro-esophageal reflux disease without esophagitis; E11.9 Type 2 diabetes mellitus without complications
CPT/HCPCS: 74177; 82565

== ENCOUNTER 2023-05-25 12:00 | Day surgery (SDC) | payer OTHER ==
[2023-05-24 15:52] VITALS: BMI 29.3
[2023-05-25] MEDS ORDERED: PROPOFOL 40 ML ONE (14:35)
[2023-05-25] MEDS ORDERED: Lidocaine 1% PF 5 ML VIAL ONE ×2 (14:44→14:57)
[2023-05-25] MEDS ORDERED: PROPOFOL 200 MG/20 ML VIAL ONE (14:57)
[2023-05-25] MEDS ORDERED: Ondansetron PF 4 MG/2 ML Vial ONE ×2 (14:57→15:53)
[2023-05-25] MEDS ORDERED: PROPOFOL 20 ML ONE (15:27)
== END 2023-05-25 17:20 | disposition home or self-care (01) ==
LOC: SDC 12:00
PROVIDERS: ATTEND Internal Medicine Gastroenterology
PROC: 0DB68ZX Excision of Stomach, Via Natural or Artificial Opening Endoscopic, Diagnostic (ICD-10-PCS; principal; 2023-05-25)
PROC: 0DBE8ZX Excision of Large Intestine, Via Natural or Artificial Opening Endoscopic, Diagnostic (ICD-10-PCS; 2023-05-25)
DX: Z12.11 Encounter for screening for malignant neoplasm of colon (principal); K21.00 Gastro-esophageal reflux disease with esophagitis, without bleeding; K31.89 Other diseases of stomach and duodenum; K52.832 Lymphocytic colitis; K44.9 Diaphragmatic hernia without obstruction or gangrene; K64.8 Other hemorrhoids; E11.9 Type 2 diabetes mellitus without complications; I25.10 Atherosclerotic heart disease of native coronary artery without angina pectoris; I48.91 Unspecified atrial fibrillation; E78.5 Hyperlipidemia, unspecified; I11.0 Hypertensive heart disease with heart failure; I50.9 Heart failure, unspecified; Z91.040 Latex allergy status; Z88.1 Allergy status to other antibiotic agents; Z90.710 Acquired absence of both cervix and uterus; Z90.89 Acquired absence of other organs; Z90.49 Acquired absence of other specified parts of digestive tract; Z79.82 Long term (current) use of aspirin; Z79.84 Long term (current) use of oral hypoglycemic drugs; Z79.4 Long term (current) use of insulin; Z79.899 Other long term (current) drug therapy
CPT/HCPCS: 36416; 88305; J2405; J2704